=== PATIENT | female | born 1980 | race Caucasian/White ===

== ENCOUNTER 2022-01-11 12:19 | Outpatient (REF) | payer MEDICAID, SELFPAY ==
[2022-01-11 13:00] LABS: COVID-19 Test Negative (Negative)
== END 2022-01-11 12:20 | disposition home or self-care (01) ==
LOC: HO.LAB 12:19
PROVIDERS: Visit Provider Internal Medicine
DX: Z20.822 Contact with and (suspected) exposure to COVID-19 (principal)
CPT/HCPCS: 87635; C9803

== ENCOUNTER 2022-01-14 04:07 | Emergency (ER) | payer MEDICAID, SELFPAY ==
[2022-01-14 04:22] VITALS: BP 141/89; PULSE 94; RESP 18; TEMP 36.8; O2SAT 98; BMI 39.6
== END 2022-01-14 07:29 | disposition left against medical advice (07) ==
PROVIDERS: Emergency Provider Emergency Medicine
DX: R06.02 Shortness of breath (principal)
CPT/HCPCS: 99281

== ENCOUNTER 2022-05-03 13:54 | Emergency (ER) | payer MEDICAID, SELFPAY ==
[2022-05-03 14:08] VITALS: BP 120/72; PULSE 110; RESP 18; TEMP 36.4; O2SAT 99; BMI 39.9
[2022-05-03 14:31] LABS: Amphetamine Screen Urine Not Detected (Not Detect); Barbiturates, Urine Not Detected (Not Detect); Benzodiazepines Screen Urine Not Detected (Not Detect); Cannabinoid Screen Urine POSITIVE (Not Detect); Cocaine Screen Urine Not Detected (Not Detect); Fentanyl, urine Not Detected (Not Detect); Opiate Screen Urine Not Detected (Not Detect); Phencyclidine Screen Urine Not Detected (Not Detect)
--- NOTE | 2022-05-03 16:49 | ED.GENADULT ---
HPI - General Adult General Chief complaint: General Medical Stated complaint: drug screening Time Seen by Provider: 05/03/22 16:47 Source: patient Mode of arrival: ambulatory Limitations: no limitations History of Present Illness HPI narrative: 41 years old female came in requesting screening drop test to be done for DCF for purpose. Patient been also complaining of yeast infection that patient get frequently asking for 1 time treatment. Complaining of dysuria, frequency urination. Related Data Previous Rx's Medication Instructions Recorded nitrofurantoin 100 mg PO Q12H 7 days #14 caps 05/03/22 monohydrate/macrocrystals 100 mg capsule (Macrobid) Allergies Allergy/AdvReac Type Severity Reaction Status Date / Time hydrocodone [From Vicodin] AdvReac Mild VOMITING Unverified 05/03/22 14:02 Penicillins AdvReac Mild VOMITING Verified 05/03/22 14:02 Review of Systems Review of Systems: All other systems are reviewed and are negative Constitutional: Reports as per HPI and Reports no additional constitutional complaints Eyes: Reports as per HPI and Reports no additional eye complaints Reports system reviewed and no additional complaints, except as documented Cardiovascular: Reports as per HPI and Reports no additional cardiovascular complaints Respiratory: Reports as per HPI and Reports no additional respiratory complaints Gastrointestinal: Reports as per HPI and Reports no additional gastrointestinal complaints Genitourinary: Reports no additional female genitourinary complaints Musculoskeletal: Reports no additional musculoskeletal complaints Skin/Breast: Reports system reviewed and no additional complaints, except as docu Psychiatric: Reports no additional psychiatric complaints Endocrine: Reports no additional endocrine complaints Hematologic/Lymphatic: Reports no additional hematologic/lymphatic complaints Allergic/Immunologic: Reports no additional allergic/immunologic complaints Reports system reviewed and no additional complaints, except as documented and Reports Abnormal speech present [facility] Social History Social History Advance Directives: No Advance Directives Information Provided: No Physical Exam ED Vital Signs: Vital Signs - 24 hr 05/03/22 14:08 Temperature 97.6 F Pulse Rate 110 H Respiratory Rate 18 Blood Pressure 120/72 Pulse Oximetry 99 Oxygen Delivery Method Room Air BMI result Body Mass Index 39.9 Vital signs have been reviewed as appeared to be correct. Blood pressure normal. Heart rate elevated. Respiration rate normal. Temperature normal. Oxygen saturation normal. Appearance: Alert. Oriented X3. No acute distress. Head: Normal external exam. Normocephalic. Atraumatic. Eyes: PERRLA. EOMI. Conjunctiva and sclera normal. Eyelids normal. Neck: Normal inspection. Respiratory: No respiratory distress. Skin: Skin warm and dry. Normal skin color. Normal skin turgor. No rashes/lesions/lacerations noted. Course Course Course Narrative: 41-year-old female here for drug screening test required by [facility]. Patient also been having a yeast urinary infection will give 1 dose of Diflucan. Symptoms for UTI. Medical Decision Making Lab Data Labs: Lab Results 05/03/22 05/03/22 05/03/22 Range/Units 14:11 14:11 14:11 Urine Color YELLOW Urine Appearance CLEAR Urine pH 6.0 (5.0-8.0) Ur Specific [place] 1.020 (1.005-1.025) Urine Protein NEG (NEG-TRACE) MG/DL Urine Glucose (UA) NEG (NEG) MG/DL Urine Ketones NEG (NEG) MG/DL Urine Blood 3+ H (NEG) Urine Nitrite NEG (NEG) Ur Leukocyte Esterase 2+ H (NEG) Urine RBC 10-14 H (0) /HPF Urine WBC 10-14 H (0-4) /HPF Ur Squamous Epith Cells 2+ /LPF Urine Bacteria NONE /LPF Urine Opiates Screen Not Detected (Not Detect) Urine Fentanyl Screen Not Detected (Not Detect) Ur Barbiturates Screen Not Detected (Not Detect) Ur Phencyclidine Scrn Not Detected (Not Detect) Ur Amphetamines Screen Not Detected (Not Detect) U Benzodiazepines Scrn Not Detected (Not Detect) Urine Cocaine Screen Not Detected (Not Detect) U Marijuana (THC) Screen POSITIVE H (Not Detect) Chlam trachomat DNA PCR NOT DETECTED (Not Detect.) N.gonorrhoeae DNA (PCR) NOT DETECTED (Not Detect.) Discharge Plan Discharge Clinical Impression: Encounter for medical screening examination, Encounter for drug screening, UTI (urinary tract infection) Patient Disposition: Home, Self-Care Instructions: Urinary Tract Infection in Women (ED), Yeast Infection (ED) Prescriptions: New nitrofurantoin monohyd/m-cryst [Macrobid] 100 mg capsule 100 mg PO Q12H 7 Days Qty: 14 0RF Rx Instructions: must administer with a meal/food Referrals: Physician,Unknown J [Physician] -
[2022-05-03 17:13] LABS: Appearance Urine CLEAR; Color Urine YELLOW; Glucose Urine UA NEG (NEG); Leukocyte Esterase Urine 2+ (NEG); Nitrite Urine NEG (NEG); Urine Blood 3+ (NEG); Urine Ketones NEG (NEG); Urine Protein NEG (NEG-TRACE)
[2022-05-03 17:17] LABS: CT PCR NOT DETECTED (Not Detect.); NG PCR NOT DETECTED (Not Detect.)
[2022-05-03] MEDS: Fluconazole 150 MG TABLET PO (17:22)
[2022-05-03 17:43] LABS: Squamous Epithelial Cell Urine 2+ /LPF
== END 2022-05-03 18:17 | disposition home or self-care (01) ==
PROVIDERS: Emergency Provider Emergency Medicine
DX: N39.0 Urinary tract infection, site not specified (principal); R30.0 Dysuria; R35.0 Frequency of micturition; Z02.9 Encounter for administrative examinations, unspecified; Z79.899 Other long term (current) drug therapy
CPT/HCPCS: 80307; 81001; 87491; 87591; 99283

== ENCOUNTER 2023-08-09 17:25 | Outpatient (REF) | payer MEDICAID, SELFPAY ==
[2023-08-10 15:34] LABS: BV Int Neg Control Negative (Negative); BV Int Pos Control Positive (Positive)
[2023-08-11 14:26] LABS: CT PCR NOT DETECTED (Not Detect.); NG PCR NOT DETECTED (Not Detect.)
== END 2023-08-09 17:26 | disposition home or self-care (01) ==
LOC: HO.LNP 17:25
PROVIDERS: Visit Provider Internal Medicine
DX: Z11.3 Encounter for screening for infections with a predominantly sexual mode of transmission (principal); R30.0 Dysuria
CPT/HCPCS: 0353U; 87086; 87088; 87186; 87480; 87510; 87660

== ENCOUNTER 2024-05-04 17:50 | Outpatient (REF) | payer MEDICAID, SELFPAY ==
[2024-05-04 17:56] LABS: Appearance Urine Clear; Color Urine Yellow; Glucose Urine UA Negative (Negative); Leukocyte Esterase Urine Negative (Negative); Nitrite Urine Negative (Negative); Urine Blood Negative (Negative); Urine Ketones Negative (Negative); Urine Protein Negative (Neg-Trace)
[2024-05-04 18:09] LABS: Bacteria Urine None Seen (None Seen); Hyaline Casts Urine 0-2 /LPF (0-2); RBC Urine 0-2 /HPF (0-2); Squamous Epithelial Cell Urine 0-2 /HPF (0-2); WBC Urine 0-5 /HPF (0-5)
[2024-05-04 20:06] LABS: CT PCR NOT DETECTED (Not Detect.); NG PCR NOT DETECTED (Not Detect.)
== END 2024-05-04 17:51 | disposition home or self-care (01) ==
LOC: HO.HHCLNP 17:50
PROVIDERS: Visit Provider Nurse Practitioner Primary Care
DX: R39.15 Urgency of urination (principal); Z11.3 Encounter for screening for infections with a predominantly sexual mode of transmission
CPT/HCPCS: 81001; 87491; 87591

== ENCOUNTER 2024-07-31 14:55 | Outpatient (REF) | payer MEDICAID, SELFPAY ==
--- NOTE | ~2024-07-31 | MM_ITS ---
EXAMINATION: MM SCREENING DIGITAL BREAST TOMOSYNTHESIS, BILATERAL CLINICAL INFORMATION: Screening. Asymptomatic. COMPARISON: Mammography: Comparison is made with available priors TECHNIQUE: Digital breast mammography with tomosynthesis is performed in both the craniocaudal and mediolateral oblique views along with computer-aided detection (CAD). FINDINGS: The breasts are heterogeneously dense, which may obscure small masses (ACR BI-RADS breast composition Category c). Left: Circumscribed oval masses lateral breast middle and anterior depth on CC view. No suspicious calcifications or other abnormal findings. Right: Focal asymmetry upper central breast middle depth. No suspicious calcifications or other abnormal findings. MM/MM tomosynthesis screening BI IMPRESSION: Additional imaging is recommended ASSESSMENT: BI-RADS BI-RADS 0 - Incomplete: Needs additional Imaging. RECOMMENDATION: 1. Additional views of the bilateral breasts. 2. Targeted ultrasound if warranted after review of the additional views. 3. Radiology department staff will contact the patient for additional imaging. Additional Imaging required This examination should not preclude the clinical evaluation of a suspicious palpable abnormality. This patient's information was entered into a reminder system with a target due date for their next mammogram. Electronically signed by: Dee Mares DO 08/12/2024 01:52 PM EDT
== END 2024-07-31 14:56 | disposition home or self-care (01) ==
LOC: HO.MAMMO 14:55
PROVIDERS: PCP Nurse Practitioner Primary Care; Visit Provider Nurse Practitioner Primary Care
DX: Z12.31 Encounter for screening mammogram for malignant neoplasm of breast (principal)
CPT/HCPCS: 77063; 77067

== ENCOUNTER → 2024-07-31 15:00 | Outpatient (BNV) | payer MEDICAID, SELFPAY | PROVIDERS: PCP Nurse Practitioner Primary Care; Visit Provider Internal Medicine | DX: Z12.31 Encounter for screening mammogram for malignant neoplasm of breast (principal) | CPT/HCPCS: 77063; 77067 ==

== ENCOUNTER 2024-12-11 08:14 | Outpatient (REF) | payer MEDICAID, SELFPAY ==
--- NOTE | ~2024-12-11 | US_ITS ---
EXAMINATION: MM DIAGNOSTIC DIGITAL BREAST TOMOSYNTHESIS, BILATERAL Bilateral Limited ultrasound. CLINICAL INFORMATION: Call back from screening for bilateral asymmetries. COMPARISON: Mammography: Comparison is made with relevant prior exams. TECHNIQUE: Digital breast mammography with tomosynthesis is performed in both the craniocaudal and mediolateral oblique views along with computer-aided detection (CAD). Bilateral Limited ultrasound. FINDINGS: The breasts are heterogeneously dense, which may obscure small masses (ACR BI-RADS breast composition Category c). Right: Circumscribed oval mass measuring 18 mm persist in the upper central breast middle depth. No suspicious calcifications or other abnormal findings. Targeted color Doppler ultrasound demonstrates a hypoechoic oval parallel circumscribed solid mass at 11:00 6 cm from the nipple measuring 9 x 11 x 16 mm. Left: There are a few subcentimeter oval masses in the lateral left breast at middle and posterior depth on CC view. No suspicious calcifications or other abnormal findings. Targeted color Doppler ultrasound scanning in the lower outer left breast demonstrates simple cyst at 4:00 7 cm from the nipple measuring 5 x 5 x 6 mm. There is an adjacent smaller simple cyst. This finding accounts for one of the oval masses seen on mammography. Results are provided to the patient at time of visit by the technologist. US/US breast BI limited mamm only IMPRESSION: Left: Simple cyst on ultrasound correlates with one of the oval masses. Recommend 6 month follow-up left breast mammography for further evaluation of stability. Right: Hypoechoic solid parallel mass in the right breast at 11:00 with morphology consistent with a fibroadenoma. Recommend 6 month follow-up ultrasound for further evaluation of stability. ASSESSMENT: BI-RADS BI-RADS 3 - Probably benign finding(s) - 6 month follow-up suggested RECOMMENDATION: 6 Month F/U This patient's information was entered into a reminder system with a target due date for their next mammogram. Electronically signed by: Dee Mares DO 12/11/2024 09:41 AM [email or web address]
--- OUTSIDE RECORDS SUMMARY | 2024-12-11 08:22 | XMS_ITS | Encounter Summary ---
Author Organization [employer] Address [address] [place] [address] Care Team Providers Care Assistant Passenger Locomotive Engineer Name Role Phone Lola Martin Primary Care Provider [phone] Reason for Visit * Reason Onset Date Comments Appointment Request 06/08/2024 Encounter Details Date Type Department Care Team ([facility] st Contact Info) Description 06/08/2024 Telephone [facility] MEDICINE [address] [place], [place] [phone] Lola Martin ANP [address] [place], [place] [phone] Appointment Request Social History Tobacco Use Types Packs/Day Years Used Date Smoking Tobacco: Every Day Cigarettes 0.5 29 Passive Smoke Exposure: Current Smokeless Tobacco: Never Alcohol Use Standard Drinks/Week Comments Not Currently 0 (1 standard drink = 0.6 oz pur e alcohol) recovering alcholism Depression Answer Date Recorded Patient Health Questionnaire-9 Score 2 05/04/2024 Patient Health Questionnaire-9 Score 2 05/04/2024 Last PHQ-9: Questionnaire Data Not on file 0 05/04/2024 Housing Stability Answer Date Recorded What is your housing situation today? I have los vidal 04/22/[address] you li ve. Do you have problems with any of the following? None of the above 04/22/2024 Food Insecurity Answer Date Recorded Within the past 12 months, y ou worried that your food would run out before you got money to buy more: Never True 04/22/2024 Within the past 12 months,th e food you bought just didn't last and you didn't have enough money to get more: Never True Transportation Answer Date Recorded In the past 12 months, has l ack of transportation kept you from medical appts, meetings, work or from getting things needed for daily living? No 04/22/2024 Utilities Answer Date Recorded In the past 12 months, has t he electric, gas, oil or water company threatened to shut off services in your home? No 04/22/2024 Depression Answer Date Recorded Patient Health Questionnaire-2 Score 0 05/04/2024 Comments Unknown Sex and Gender Information Value Date Recorded Sex Assigned at Female 08/27/2022 10:16 AM EDT Legal Sex Female 10:16 AM EDT Gender Identity Female 08/27/2022 10:16 AM EDT Sexual Orientation Straight 08/27/2022 10 :16 AM EDT documented as of this encounter Miscellaneous Notes * Telephone Encounter - Bk Melissa - 06/08/2024 2:09 PM EDT Tc from patient calling to reschedule Missed PAP appt on 06/08 documented in this encounter Plan of Treatment Upcoming Encounters Date Type Department Care Team (Late st Contact Info) Description 01/25/2025 1:15 PM EDT Office Visit [facility] MEDICINE [address] [place] [address] Lola Martin ANP [address] [place] [address] documented as of this encounter Visit Diagnoses Not on filedocumented in this encounter Additional Health Concerns Assessment Noted Time PHQ-9 Depression Total Score: 2 05/04/20 24 1:41 PM EDT documented as of this encounter Care Teams Assistant Passenger Locomotive Engineer Relationship Specialty Start Date End Date Lola Martin ANP [address] [place] [id number] PCP - General Family Medicine 06/21/22 documented as of this encounter
--- OUTSIDE RECORDS SUMMARY | 2024-12-11 08:22 | XMS_ITS | Encounter Summary ---
Author Organization [employer] Address [address] [place] [address] Care Team Providers Care Community Manager Name Role Phone Lola Martin Primary Care Provider [phone] Reason for Visit * Reason Onset Date Comments Appointment Request 02/12/2024 Encounter Details Date Type Department Care Team ([facility] st Contact Info) Description 02/12/2024 Telephone [facility] MEDICINE [address] [place], [place] [phone] Lola Martin ANP [address] [place], [place] [phone] Appointment Request Social History Tobacco Use Types Packs/Day Years Used Date Smoking Tobacco: Every Day Cigarettes 0.5 29 Passive Smoke Exposure: Current Smokeless Tobacco: Never Alcohol Use Standard Drinks/Week Comments Not Currently 0 (1 standard drink = 0.6 oz pur e alcohol) recovering alcholism Depression Answer Date Recorded Patient Health Questionnaire-9 Score 0 01/21/2023 Housing Stability Answer Date Recorded What is your housing situation today? I have los vidal 08/12/[address] you li ve. Do you have problems with any of the following? None of the above 08/12/2023 Food Insecurity Answer Date Recorded Within the past 12 months, y ou worried that your food would run out before you got money to buy more: Never True 08/12/2023 Within the past 12 months,th e food you bought just didn't last and you didn't have enough money to get more: Never True Transportation Answer Date Recorded In the past 12 months, has l ack of transportation kept you from medical appts, meetings, work or from getting things needed for daily living? No 08/12/2023 Utilities Answer Date Recorded In the past 12 months, has t he electric, gas, oil or water company threatened to shut off services in your home? No 08/12/2023 Depression Answer Date Recorded Patient Health Questionnaire-2 Score 0 01/21/2023 Comments Unknown Sex and Gender Information Value Date Recorded Sex Assigned at Female 08/27/2022 10:16 AM EDT Legal Sex Female 10:16 AM EDT Gender Identity Female 08/27/2022 10:16 AM EDT Sexual Orientation Straight 08/27/2022 10 :16 AM EDT documented as of this encounter Miscellaneous Notes * Telephone Encounter - Amber Cobian - 02/12/2024 12:10 PM EDT Tc from pt requesting r/s PE appt documented in this encounter Plan of Treatment Upcoming Encounters Date Type Department Care Team (Late st Contact Info) Description 01/25/2025 1:15 PM EDT Office Visit [facility] MEDICINE [address] [place] [address] Lola Martin ANP [address] [place] [phone] documented as of this encounter Visit Diagnoses Not on filedocumented in this encounter Additional Health Concerns Assessment Noted Time PHQ-9 Depression Total Score: 0 01/22/20 23 1:51 PM EDT documented as of this encounter Care Teams Community Manager Relationship Specialty Start Date End Date Lola Martin ANP [address] [place] [address] PCP - General Family Medicine 06/21/22 documented as of this encounter
--- OUTSIDE RECORDS SUMMARY | 2024-12-11 08:22 | XMS_ITS | Clinical Summary ---
Author Organization [employer] Address [address] [place] [address] Care Team Providers Care Human Factors Advisor Lead Name Role Phone Mario Lola WASHBURN Primary Care Provider [phone] Allergies No known active allergies Medications triamcinolone (Kenalog) 0.1 % creamIndication s:Eczema, unspecified type Mix into full tub of cerave or similar, apply twice daily 80 g 2 4 Active Emollient (CeraVe Moisturizing) creamIndication s:Eczema, unspecified type Mix triamcinolone into tub, apply twice daily 453 g 3 4 Active varenicline (Chantix) 0.5 MG tabletIndicatio ns:Smokes cigarettes Take 0.5 mg PO once daily on Days 1 through 3, then 0.5 mg PO twice daily on Days 4 through 7, then start 1mg twice daily prescription; take with full glass of water 11 tablet 4 Active varenicline (Chantix) 1 MG tabletIndicatio ns:Smokes cigarettes Take 1 tablet (1 mg) by mouth 2 times daily. Take with full glass of water. Start after initial 7d rx. 60 tablet 2 4 Active nicotine (Nicoderm CQ) 14 MG/24HR patchIndication s:Smokes cigarettes Place 1 patch on the skin 1 (one) time each day at the same time. 42 patch 4 Active nicotine (Nicoderm CQ) 7 MG/24HR patchIndication s:Smokes cigarettes Place 1 patch on the skin 1 (one) time each day at the same time. Do not start before May 29, 2024. 28 patch 1 4 Active buPROPion XL (Wellbutrin XL) 150 MG 24 hr tablet Take 150 mg by mouth Once per day. Do not crush, chew, or split. Active nicotine polacrilex (Nicorette Starter Kit) 2 MG gumIndications: Smokes cigarettes Chew and place b/w gums 1 piece as needed every 2 hours 110 each 11 4 Active Active Problems Problem Noted Date Diagnosed Date Smokes cigarettes 05/04/2024 Overview (05/04/2024): Smoked since 13yo, motivated to quit Vaginal discharge 08/09/2023 Elevated blood pressure reading 08/09/2023 Assessment & Plan (08/09/2023 3:11 PM EDT): Low Na diet , weight reduction Monitor BP at home F/u with PCP Missing teeth, acquired 05/29/2023 Dental calculus 05/29/2023 Eczema 07/14/2013 Overview (01/21/2023): Has used fluff combining Triamcinolone and CeraVe cream which works well Depressive disorder 02/24/2013 Assessment & Plan (08/09/2023 3:11 PM EDT): Patient ask today refill for wellbutrin History of substance abuse 02/24/2013 Obesity 02/24/2013 Immunizations Name Administration Dates Next Due Pfizer Covid-19 Vaccine 12+ 01/17/2022 Pfizer Covid-19 Vaccine 12+ inocente-sucrose (Pierce Cha ap) 01/21/2023,01/17/2022 Social History Tobacco Use Types Packs/Day Years Used Date Smoking Tobacco: Every Day Cigarettes 0.5 29 Passive Smoke Exposure: Current Smokeless Tobacco: Never Tobacco Cessation:Ready to Q uit: Not Asked; Counseling Given: Not Answered Alcohol Use Standard Drinks/Week Comments Not Currently [...] Recorded Patient Health Questionnaire-2 Score 0 05/04/2024 Internet Access Answer Date Recorded Internet Access Q1 Yes 06/29/2024 Internet Access Q2 Not on file 06/29/2024 Comments Unknown Sex and Gender Information Value Date Recorded Sex Assigned at Female 08/27/2022 10:16 AM EDT Legal Sex Female 10:16 AM EDT Gender Identity Female 08/27/2022 10:16 AM EDT Sexual Orientation Straight 08/27/2022 10 :16 AM EDT Last Filed Vital Signs Vital Sign Reading Time Taken Comments Blood Pressure 121/76 05/04/2024 1:40 PM EDT Pulse 102 05/04/2024 1:40 PM EDT Temperature 36.9 ??C (98.4 ??F) 05/04/2024 1:40 PM ED T Respiratory Rate 20 05/04/2024 1:40 PM EDT Oxygen Saturation 97% 05/04/2024 1:40 PM EDT Inhaled Oxygen Concentration - - Weight 108 kg (238 lb 6.4 oz) 05/04/2024 1:40 PM EDT Height 167.6 cm (5' 6 ) 05/04/2024 1:40 PM EDT Body Mass Index 38.48 05/04/2024 1:40 PM EDT Plan of Treatment Upcoming Encounters Date Type Department Care Team (Late st Contact Info) Description 01/25/2025 1:15 PM EDT Office Visit [facility] MEDICINE [address] [place] [address] Lola Martin ANP [address] [place] [address] Health Maintenance Due Date Last Done Comments Alcohol/Substance Use Screening 1993 Family Planning (PISQ) 1996 DTaP/Tdap/Td Vaccines (1 - Tdap) 2000 Hepatitis A Vaccines (1 of 2 - Risk 2-dose series) 2000 Hepatitis B Vaccines (1 of 3 - 19+ 3-dose series) 2000 Pneumococcal Vaccine: Pediatrics (0 to 5 Years) and At-Risk Patients (6 to 49) Years) (1 of 2 - PCV) 2000 Pap Smear 2002 Cervical Cancer Screening 2011 HPV/Cotest 2011 Dental X-Ray: Bitewings 11/27/2023 11/26/2022 Dental Prophylaxis 11/30/2023 05/29/2023 Dental Oral Exam 01/25/2024 07/26/2023, 11/26/2022 COVID-19 Vaccine (4 - 2023-2 5 season) 2024 01/21/2023, 01/17/2022, 01/17/2022 Influenza Vaccine (#1) 2024 Diagnostic Breast Imaging 08/13/2024 SDOH Screening 04/22/2025 04/22/2024 Depression Screening 05/04/2025 05/04/2024, 05/04/2024 Tobacco Screening 05/04/2025 05/04/2024 Dental X-Ray: Full Mouth 11/27/2025 11/26/2022 Lipid Panel 05/29/2026 05/29/2021 Zoster Vaccines (1 of 2) 2031 RSV Patients and Patients Aged 60 years or older (1 - 1-dose 75+ series) 2056 HIV Screening Completed 05/29/2021 Hepatitis C Screening Completed 05/29/2021 HIB Vaccines Aged Out No longer eligi ble based on patient's age to complete this topic HPV Vaccines Aged Out No longer eligi ble based on patient's age to complete this topic IPV Vaccines Aged Out No longer eligi ble based on patient's age to complete this topic Meningococcal Vaccine Aged Out No caitlyn moise eligible based on patient's age to complete this topic RSV under 20 months Aged Out No longe r eligible based on patient's age to complete this topic Rotavirus Vaccines Aged Out No longer eligible based on patient's age to complete this topic Procedures Procedure Name Priority Date/Time Associated Diagnosis Comments PERIODIC ORAL EVALUATION - ESTABLISHED PATIENT Routine 07/26/2023 2:00 PM EDT Dental caries PROPHYLAXIS - ADULT Routine 05/29/2023 3 :00 PM EDT INTRAORAL - COMPLETE SERIES OF RADIOGRAPHIC IMAGES Routine 11/26/2022 2:00 PM EST ZZZ HISTORICAL HEPATITIS C AB W/REFL TO HCV RNA, QN, PCR Routine 05/29/2021 11:26 AM EDT HIV 1/2 ANTIGEN/ANTIBODY, FOURTH GENERATION W/RFL Routine 05/29/2021 11:26 AM EDT LIPID PANEL, STANDARD Routine 05/29/2021 11:26 AM EDT from Last 3 Months or Most Recently Relevant to Health Maintenance Results * HEPATITIS C AB W/REFL TO HCV RNA, QN, PCR (05/29/2021 11:26 AM EDT) HEPATITIS C ANTIBODY NON-REACT SAAD NON-REACT SAAD [facility] INDEX 0.01 <1.00 [facility] Comment: ?? HCV antibody was non-reactive. There is no laboratory ?? evidence of HCV infection. ?? In most cases, no further action is required. However, if recent HCV exposure is suspected, a test for HCV RNA (test code 49176) is suggested. ?? For additional information please refer to http://education.[employer].BUILD/faq/GCH54o0 (This link is being provided for informational/ educational purposes only.) ?? 05/29/2021 11:2 6 AM EDT Katie Aragon NP HISTORICAL/NON ORDERABLE LABS F inal Result [facility] [place] [address], * HIV 1/2 ANTIGEN/ANTIBODY,FOURTH GENERATION W/RFL (05/29/2021 11:26 AM EDT) [facility] HIV-1/2 ANTIGEN AND ANTIBODIES, 4TH GENERATION W/ REFLEX NON-REACT SAAD NON-REACT SAAD [facility] Comment: HIV-1 antigen and HIV-1/HIV-2 antibodies were not detected. There is no laboratory evidence of HIV infection. ?? PLEASE NOTE: This information has been disclosed to you from records whose confidentiality may be protected by state law. ??If your state requires such protection, then the state law prohibits you from making any further disclosure of the information without the specific written consent of the person to whom it pertains, or as otherwise permitted by law. A general authorization for the release of medical or other information is NOT sufficient for this purpose. ? For additional information please refer to http://[employer]/faq/OYG139 (This link is being provided for informational/ educational purposes only.) ? The performance of this assay has not been clinically validated in patients less than 2 years old. ?? 05/29/2021 11:2 6 AM EDT Katie Aragon NP LAB BLOOD ORDERABLES Final Resu lt [facility] [address] * (ABNORMAL) LIPID PANEL, STANDARD (05/29/2021 11:26 AM EDT) [facility] Chol/HDLC Ratio 3.6 <5.0 (calc) [facility] Cholesterol, Total 178 <200 mg/dL [facility] HDL Cholesterol 49(L) > OR = 50 mg/dL [facility] LDL Cholesterol 104(H) mg/dL (calc) [facility] Comment: Reference range: <100 ?? Desirable range <100 mg/dL for primary prevention; ?? <70 mg/dL for patients with CHD or diabetic patients ?? with > or = 2 CHD risk factors. ?? LDL-C is now calculated using the Nicanor-Colindres ?? calculation, which is a validated novel method providing ?? better accuracy than the Friedewald equation in the ?? estimation of LDL-C. ?? Nicanor SS et al. SARWAT. 2013;310(19): 4947-5609 ?? (http://[employer]/faq/TKW515) Non-HDL Cholesterol 129 <130 mg/dL (calc) [facility] Comment: For patients with diabetes plus 1 major ASCVD risk ?? factor, treating to a non-HDL-C goal of <100 mg/dL ?? (LDL-C of <70 mg/dL) is considered a therapeutic ?? option. Triglycerides 148 <150 mg/dL [facility] 05/29/2021 11:2 6 AM EDT us Katie Aragon NP LAB BLOOD ORDERABLES Final Resu lt [facility] [address] [place] [address], from Last 3 Months or Most Recently Relevant to Health Maintenance Insurance [facility] STANDARD D[facility] STAND ADULT Care Teams Human Factors Advisor Lead Relationship Specialty Start Date End Date Lola Martin ANP [address] [place] [phone] PCP - General Family Medicine 06/21/22
== END 2024-12-11 08:15 | disposition home or self-care (01) ==
LOC: HO.MAMMO 08:14
PROVIDERS: PCP Nurse Practitioner Primary Care; Visit Provider Nurse Practitioner Primary Care
DX: R92.331 Mammographic heterogeneous density, right breast (principal); N64.89 Other specified disorders of breast; N63.11 Unspecified lump in the right breast, upper outer quadrant; N60.21 Fibroadenosis of right breast; N60.02 Solitary cyst of left breast
CPT/HCPCS: 76642; 77062; 77066

== ENCOUNTER → 2024-12-11 08:30 | Outpatient (BNV) | payer MEDICAID, SELFPAY | PROVIDERS: PCP Nurse Practitioner Primary Care; Visit Provider Internal Medicine | DX: N63.11 Unspecified lump in the right breast, upper outer quadrant (principal); N60.02 Solitary cyst of left breast | CPT/HCPCS: 76642; 77062; 77066 ==

== ENCOUNTER 2025-02-23 16:27 | Outpatient (REF) | payer MEDICAID, SELFPAY ==
--- OUTSIDE RECORDS SUMMARY | 2025-02-23 18:34 | XMS_ITS | Clinical Summary ---
Author Organization [facility] Address [address] [place] [address] Care Team Providers Care Soils Technician Name Role Phone Vanda Plaza WU Primary Care Provider [phone] Allergies No known active allergies Medications triamcinolone (Kenalog) 0.1 % creamIndicatio ns:Eczema, unspecified type Mix into full tub of cerave or similar, apply twice daily 80 g 2 Active Emollient (CeraVe Moisturizing) creamIndicatio ns:Eczema, unspecified type Mix triamcinolone into tub, apply twice daily 453 g 3 Active nicotine (Nicoderm CQ) 14 MG/24HR patchIndicatio ns:Smokes cigarettes Place 1 patch on the skin 1 (one) time each day at the same time. 42 patch 024 Active nicotine (Nicoderm CQ) 7 MG/24HR patchIndicatio ns:Smokes cigarettes Place 1 patch on the skin 1 (one) time each day at the same time. Do not start before May 29, 2024. 28 patch 1 Active buPROPion XL (Wellbutrin XL) 150 MG 24 hr tablet Take 150 mg by mouth Once per day. Do not crush, chew, or split. Active nicotine polacrilex (Nicorette Starter Kit) 2 MG gumIndications :Smokes cigarettes Chew and place b/w gums 1 piece as needed every 2 hours 110 each 11 Active varenicline (Chantix) 0.5 MG tabletIndicati ons:Smokes cigarettes Take 0.5 mg PO once daily on Days 1 through 3, then 0.5 mg PO twice daily on Days 4 through 7, then start 1mg twice daily prescription; take with full glass of water 11 tablet 025 Active varenicline (Chantix) 1 MG tabletIndicati ons:Smokes cigarettes Take 1 tablet (1 mg) by mouth 2 times daily. Take with full glass of water. Start after initial 7d rx. 60 tablet 2 025 Active Tirzepatide-We ight Management (Zepbound) 2.5 MG/0.5ML solution auto-injectorI ndications:Cla ss 3 severe obesity with body mass index (BMI) of 40.0 to 44.9 in adult, unspecified obesity type, unspecified whether serious comorbidity present Inject 0.5 mL (2.5 mg) under the skin 1 (one) time per week. 2 mL 025 Active varenicline (Chantix) 0.5 MG tabletIndicati ons:Smokes cigarettes Take 0.5 mg PO once daily on Days 1 through 3, then 0.5 mg PO twice daily on Days 4 through 7, then start 1mg twice daily prescription; take with full glass of water 11 tablet 024 2024 Discontinued(R eorder (will not trigger notification to Pharmacy)) varenicline (Chantix) 1 MG tabletIndicati ons:Smokes cigarettes Take 1 tablet (1 mg) by mouth 2 times daily. Take with full glass of water. Start after initial 7d rx. 60 tablet 2 024 2024 Discontinued(R eorder (will not trigger notification to Pharmacy)) Active Problems Problem Noted Date Diagnosed Date Generalized abdominal pain 02/17/2025 Assessment & Plan (02/18/2025 5:25 PM EDT): Pt with constant abdominal pain and inability to eat or drink Reports inability to tolerate antinausea meds Er visit in chart but unable to view work up Reviewed option of labs and imaging out patient Pt reports cannot wait, expect called [facility] for further work up Smokes cigarettes 05/04/2024 Overview (05/04/2024): Smoked since 13yo, motivated to quit Elevated blood pressure reading 08/09/2023 Assessment & [...] History of substance abuse 02/24/2013 Obesity 02/24/2013 Resolved Problems Problem Noted Date Diagnosed Date Resolved Date Vaginal discharge 08/09/2023 01/25/2025 Encounters Date Type Department Care Team Description 02/23/2025 2:15 PM EDT Procedure Visit [address] [address] Maggie Rawls CNM Cervical cancer screening (Primary Dx); Screening examination for venereal disease; Menorrhagia with regular cycle 02/23/2025 Travel 02/17/2025 9:30 AM EDT Office Visit [address] [address] Emely Zazueta NP Generalized abdominal pain (Primary Dx) 02/17/2025 Travel 02/02/[address] [address] Vanda Plaza ANP March01/28/[address] [address] Vanda Plaza ANP Prior Auth Prescription (Zepbound) 01/25/2025 1:15 PM EDT Office Visit [address] [address] Vanda Plaza ANP Class 3 severe obesity with body mass index (BMI) of 40.0 to 44.9 in adult, unspecified obesity type, unspecified whether serious comorbidity present (CMS/HCC) (Primary Dx); Smokes cigarettes; Menorrhagia with regular cycle; Elevated blood pressure reading without diagnosis of hypertension 01/25/2025 Travel 01/08/2025 Population Health Risk Score [facility] [address] [address] Provider, Population Health Generic 12/11/2024 Orders Only [facility] [address] [place] [address] Vanda Plaza ANP from Last 3 Months Immunizations Name Administration Dates Next Due Pfizer Covid-19 Vaccine 12+ 01/17/2022 Pfizer Covid-19 Vaccine 12+ inocente-sucrose (Pelayo Semaj ap) 01/21/2023,01/17/2022 Pneumococcal Conjugate PCV 20 01/25/2025 Tdap 01/25/2025 Family History Medical History Relation Name Comments Breast cancer Other Maternal great aunt Colon cancer Neg Hx Ovarian cancer Neg Hx Relation Name Status Comments Other Unknown Social History Tobacco Use Types Packs/Day Years [...] is your housing situation today? I have losruel vidal 04/22/[address] you [...] Access Q2 Not on file 06/29/2024 Comments No Sex and Gender Information Value Date Recorded Sex Assigned at Female 08/27/2022 10:16 AM EDT Legal Sex Female 10:16 AM EDT Gender Identity Female 08/27/2022 10:16 AM EDT Sexual Orientation Straight 08/27/2022 10 :16 AM EDT Last Filed Vital Signs Vital Sign Reading Time Taken Comments Blood Pressure 110/90 02/23/2025 2:24 PM EDT Pulse 88 02/23/2025 2:24 PM EDT Temperature 36.8 ??C (98.3 ??F) 02/23/2025 2:24 PM ED T Respiratory Rate 24 02/23/2025 2:24 PM EDT Oxygen Saturation 96% 01/25/2025 1:33 PM EDT Inhaled Oxygen Concentration - - Weight 106 kg (233 lb 3.2 oz) 02/23/2025 2:24 PM EDT Height 165.1 cm (5' 5 ) 02/23/2025 2:24 PM EDT Body Mass Index 38.81 02/23/2025 2:24 PM EDT Plan of Treatment Health Maintenance Due Date Last Done Comments Hepatitis B Vaccines (1 of 3 - 19+ 3-dose series) 2000 Pap Smear 2002 Cervical Cancer Screening 2011 HPV/Cotest 2011 Dental X-Ray: Bitewings 11/27/2023 11/26/2022 Dental Prophylaxis 11/30/2023 05/29/2023 Dental Oral Exam 01/25/2024 07/26/2023, 11/26/2022 COVID-19 Vaccine ( - 2023-2 5 season) 2024 01/21/2023, 01/17/2022, 01/17/2022 Influenza Vaccine (#1) 2024 SDOH Screening 04/22/2025 04/22/2024 Depression Screening 05/04/2025 05/04/2024, 05/04/2024 Diagnostic Breast Imaging 06/10/2025 12/11/2024 Dental X-Ray: Full Mouth 11/27/2025 11/26/2022 Alcohol/Substance Use Screening 01/25/2026 01/25/2025 Family Planning (PISQ) 02/23/2026 02/23/2025 Tobacco Screening 02/23/2026 02/23/2025 Lipid Panel 05/29/2026 05/29/2021 Zoster Vaccines (1 of 2) 2031 DTaP/Tdap/Td Vaccines (2 - T d or Tdap) 01/25/2035 01/25/2025 RSV Patients and Patients Aged 60 years or older (1 - 1-dose 75+ series) 2056 HIV Screening Completed 05/29/2021 Hepatitis C Screening Completed 05/29/2021 Pneumococcal Vaccine: Pediatrics (0 to 5 Years) and At-Risk Patients (6 to 49) Years) Completed 01/25/2025 HIB Vaccines Aged Out No longer eligi ble based on patient's age to complete this topic HPV Vaccines Aged Out No longer eligi ble based on patient's age to complete this topic Hepatitis A Vaccines Aged Out No long er eligible based on patient's age to complete [...] Procedure Name Priority Date/Time Associated Diagnosis Comments POCT URINALYSIS DIPSTICK Routine 02/17/2025 9:47 AM EDT Generalized abdominal pain POCT , URINE Routine 02/17/2025 9:46 AM EDT Generalized abdominal pain BI US BREAST LIMITED BILATERAL Routine 12/11/2024 9:00 AM EST BI MAMMOGRAM DIAGNOSTIC TOMOSYNTHESIS ADDED VIEW BILATERAL Routine 12/11/2024 8:20 AM EST PERIODIC ORAL EVALUATION - ESTABLISHED PATIENT Routine [...] Recently Relevant to Health Maintenance Results * (ABNORMAL) POCT urinalysis dipstick manually resulted (02/17/2025 9:47 AM EDT) Color, UA Colorless Clarity, UA Cloudy Glucose, UA Negative Bilirubin, UA Negative Ketones, UA Negative Spec Grav, UA 1.030 Blood, UA Positive(A) Negative, None Detected pH, UA 6.0 Protein, UA 2+ 125++ Urobilinogen, UA 0.2 Leukocytes, UA Negative Negative, Rare, Trace Nitrite, UA Negative Negative, None Detected Appearance, UA clear QC Media Lot # [id number] Lot# Expiration Date Urine 02/17/2025 9:47 AM EDT Emely Zazueta NP POINT OF CARE TEST ENTER/EDIT OR DERABLES Final Result * POCT , urine manually resulted (02/17/2025 9:46 AM EDT) Preg Test, Ur Negative Negative, Indeterminate, None Detected, Invalid, Specimen unsatisfactory for evaluation, Weakly Positive QC Media Lot # [id number] Lot# Expiration Date Urine 02/17/2025 9:46 AM EDT Emely Zazueta NP POINT OF CARE TEST ENTER/EDIT OR DERABLES Final Result * BI US Breast Limited Bilateral (12/11/2024 9:00 AM EST) Anatomical Region Laterality Modality Breast Bilateral Ultrasound 12/11/2024 9:00 AM EST Narrative 12/11/2024 9:44 AM EST ? [facility] [place] ? [address] ?[place] [address] ? Ultrasound Report ? Signed ? Patient: Haramut,Croghan ?MR#: [id number] ?? [id number] ? : 1980 ?Acct:[id number] ? Age/Sex: 44 / F ?ADM Date: 12/11/24 ? Loc: HO.MAMMO ? Attending Dr: Vanda Plaza NP ? Ordering Physician: VANDA PLAZA NP ?? Date of Service: 12/11/24 ?? Procedure(s): US breast BI limited mamm only ?? Accession Number(s): [id number] ? cc: VANDA PLAZA NP ? EXAMINATION: ?? MM DIAGNOSTIC DIGITAL BREAST TOMOSYNTHESIS, BILATERAL ?? Bilateral Limited ultrasound. ? CLINICAL INFORMATION: ? Call back from screening for bilateral asymmetries. ? COMPARISON: ?? Mammography: Comparison is made with relevant prior exams. ? TECHNIQUE: ?? Digital breast mammography with tomosynthesis is performed in both the ?? craniocaudal and mediolateral oblique views along with computer-aided ?? detection (CAD). ?? Bilateral Limited ultrasound. ? FINDINGS: ?? The breasts are heterogeneously dense, which may obscure small masses ?? (ACR BI-RADS breast composition Category c). ?? Right: ?? Circumscribed oval mass measuring 18 mm persist in the upper central ?? breast middle depth. ?? No suspicious calcifications or other abnormal findings. ? Targeted color Doppler ultrasound demonstrates a hypoechoic oval ?? parallel circumscribed solid mass at 11:00 6 cm from the nipple ?? measuring 9 x 11 x 16 mm. ? Left: ?? There are a few subcentimeter oval masses in the lateral left breast at ?? middle and posterior depth on CC view. ?? No suspicious calcifications or other abnormal findings. ? Targeted color Doppler ultrasound scanning in the lower outer left ?? breast demonstrates simple cyst at 4:00 7 cm from the nipple measuring ?? 5 x 5 x 6 mm. There is an adjacent smaller simple cyst. This finding ?? accounts for one of the oval masses seen on mammography. ? Results are provided to the patient at time of visit by the ?? technologist. ? US/US breast BI limited mamm only ?? IMPRESSION: ?? Left: ?? Simple cyst on ultrasound correlates with one of the oval masses. ?? Recommend 6 month follow-up left breast mammography for further ?? evaluation of stability. ? Right: ?? Hypoechoic solid parallel mass in the right breast at 11:00 with ?? morphology consistent with a fibroadenoma. Recommend 6 month follow-up ?? ultrasound for further evaluation of stability. ? ASSESSMENT: ? BI-RADS BI-RADS 3 - Probably benign finding(s) - 6 month follow-up ?? suggested ? RECOMMENDATION: ?? 6 Month F/U ? This patient's information was entered into a reminder system with a ?? target due date for their next mammogram. ? Electronically signed by: ??Dee Mares DO ??12/11/2024 09:41 AM EST ? Dictated By: ?Dee Mares DO ? Signed By: ?<Electronically signed by Dee Mares, DO in OV> ? 12/11/24 0941 ? DD/ 0900 ? TD/TT: 12/11/24 0936 ? Tone Regulator: ? Procedure Note Bess Delgado - 12/11/2024 [facility] [address] [place] [address] Ultrasound Report Signed Patient: Dyan VuMR#: [id number] : 1980Acct:[id number] Age/Sex: 44 / FADM Date: 12/11/24 Loc: HO.MAMMO Attending Dr: Vanda Plaza NP Ordering Physician: VANDA PLAZA NP Date of Service: 12/11/24 Procedure(s): breast BI limited mamm only Accession Number(s): [id number] cc: VANDA PLAZA NP EXAMINATION: MM DIAGNOSTIC DIGITAL BREAST TOMOSYNTHESIS, BILATERAL Bilateral Limited ultrasound. CLINICAL INFORMATION: Call back from screening for bilateral asymmetries. COMPARISON: Mammography: Comparison is made with relevant prior exams. TECHNIQUE: Digital breast mammography with tomosynthesis is performed in both the craniocaudal and mediolateral oblique views along with computer-aided detection (CAD). Bilateral Limited ultrasound. FINDINGS: The breasts are heterogeneously dense, which may obscure small masses (ACR BI-RADS breast composition Category c). Right: Circumscribed oval mass measuring 18 mm persist in the upper central breast middle depth. No suspicious calcifications or other abnormal findings. Targeted color Doppler ultrasound demonstrates a hypoechoic oval parallel circumscribed solid mass at 11:00 6 cm from the nipple measuring 9 x 11 x 16 mm. Left: There are a few subcentimeter oval masses in the lateral left breast at middle and posterior depth on CC view. No suspicious calcifications or other abnormal findings. Targeted color Doppler ultrasound scanning in the lower outer left breast demonstrates simple cyst at 4:00 7 cm from the nipple measuring 5 x 5 x 6 mm. There is an adjacent smaller simple cyst. This finding accounts for one of the oval masses seen on mammography. Results are provided to the patient at time of visit by the technologist. US/US breast BI limited mamm only IMPRESSION: Left: Simple cyst on ultrasound correlates with one of the oval masses. Recommend 6 month follow-up left breast mammography for further evaluation of stability. Right: Hypoechoic solid parallel mass in the right breast at 11:00 with morphology consistent with a fibroadenoma. Recommend 6 month follow-up ultrasound for further evaluation of stability. ASSESSMENT: BI-RADS BI-RADS 3 - Probably benign finding(s) - 6 month follow-up suggested RECOMMENDATION: 6 Month F/U This patient's information was entered into a reminder system with a target due date for their next mammogram. Electronically signed by: Dee Mares DO 12/11/2024 09:41 AM EST Dictated By: Dee Mares DO Signed By: <Electronically signed by Dee Mares DO in OV> 12/11/2441 DD/ 0900 TD/TT: 12/11/24 0936 Tone Regulator: us Vanda YUAN US PROCEDURES Edited Result - Final * BI Mammogram Diagnostic Tomosynthesis added bilateral (12/11/2024 8:20 AM EST) Anatomical Region Laterality Modality Breast Left Mammography 12/11/2024 8:20 AM EST Narrative 12/11/2024 9:44 AM EST ? [place] [facility] ? [address] ?[place] [address] ? Mammography Report ? Signed ? Patient: Haramut,Croghan ?MR#: [id number] ?? [id number] ? : 1980 ?Acct:[id number] ? Age/Sex: 44 / F ?ADM Date: 12/11/24 ? Loc: HO.MAMMO ? Attending Dr: Vanda Plaza STUNT MAN ? Ordering Physician: VANDA PLAZA NP ?Results: 3.6MProbabl ?? y Benign Finding - Short 6 M F/U Suggested ? Date of Service: 12/11/24 ?Follow Up: 6 Month F/U ? Procedure(s): MM tomosynthesis added view BI ?? Accession Number(s): [id number] ? cc: VANDA PLAZA NP ? EXAMINATION: ?? MM DIAGNOSTIC DIGITAL BREAST TOMOSYNTHESIS, BILATERAL ?? Bilateral Limited ultrasound. ? CLINICAL INFORMATION: ? Call back from screening for bilateral asymmetries. ? COMPARISON: ?? Mammography: Comparison is made with relevant prior exams. ? TECHNIQUE: ?? Digital breast mammography with tomosynthesis is performed in both the ?? craniocaudal and mediolateral oblique views along with computer-aided ?? detection (CAD). ?? Bilateral Limited ultrasound. ? FINDINGS: ?? The breasts are heterogeneously dense, which may obscure small masses ?? (ACR BI-RADS breast composition Category c). ?? Right: ?? Circumscribed oval mass measuring 18 mm persist in the upper central ?? breast middle depth. ?? No suspicious calcifications or other abnormal findings. ? Targeted color Doppler ultrasound demonstrates a hypoechoic oval ?? parallel circumscribed solid mass at 11:00 6 cm from the nipple ?? measuring 9 x 11 x 16 mm. ? Left: ?? There are a few subcentimeter oval masses in the lateral left breast at ?? middle and posterior depth on CC view. ?? No suspicious calcifications or other abnormal findings. ? Targeted color Doppler ultrasound scanning in the lower outer left ?? breast demonstrates simple cyst at 4:00 7 cm from the nipple measuring ?? 5 x 5 x 6 mm. There is an adjacent smaller simple cyst. This finding ?? accounts for one of the oval masses seen on mammography. ? Results are provided to the patient at time of visit by the ?? technologist. ? MM/MM tomosynthesis added view BI ?? IMPRESSION: ?? Left: ?? Simple cyst on ultrasound correlates with one of the oval masses. ?? Recommend 6 month follow-up left breast mammography for further ?? evaluation of stability. ? Right: ?? Hypoechoic solid parallel mass in the right breast at 11:00 with ?? morphology consistent with a fibroadenoma. Recommend 6 month follow-up ?? ultrasound for further evaluation of stability. ? ASSESSMENT: ? BI-RADS BI-RADS 3 - Probably benign finding(s) - 6 month follow-up ?? suggested ? RECOMMENDATION: ?? 6 Month F/U ? This patient's information was entered into a reminder system with a ?? target due date for their next mammogram. ? Electronically signed by: ??Dee Guerlinemerle DO ??12/11/2024 09:41 AM EST ?? RP ? Dictated By: ?Dee Mares DO ? Signed By: ?<Electronically signed by Dee Mares, DO in OV> ? 12/11/24 0941 ? DD/ 0820 ? TD/TT: 12/11/24 0845 ? Tone Regulator: ? Procedure Note Danny, Image - 12/11/2024 [facility] [address] [place], [place] [address] Mammography Report Signed Patient: Dyan VuMR#: [id number] : 1980Acct:[id number] Age/Sex: 44 / FADM Date: 12/11/24 Loc: HO.MAMMO Attending Dr: Vanda Plaza NP Ordering Physician: VANDA PLAZA NPResults: 3.6MProbabl y Benign Finding - Short 6 M F/U Suggested Date of Service: 12/11/24Follow Up: 6 Month F/U Procedure(s): MM tomosynthesis added view BI Accession Number(s): [id number] cc: VANDA PLAZA NP EXAMINATION: MM DIAGNOSTIC DIGITAL BREAST TOMOSYNTHESIS, BILATERAL Bilateral Limited ultrasound. CLINICAL INFORMATION: Call back from screening for bilateral asymmetries. COMPARISON: Mammography: Comparison is made with relevant prior exams. TECHNIQUE: Digital breast mammography with tomosynthesis is performed in both the craniocaudal and mediolateral oblique views along with computer-aided detection (CAD). Bilateral Limited ultrasound. FINDINGS: The breasts are heterogeneously dense, which may obscure small masses (ACR BI-RADS breast composition Category c). Right: Circumscribed oval mass measuring 18 mm persist in the upper central breast middle depth. No suspicious calcifications or other abnormal findings. Targeted color Doppler ultrasound demonstrates a hypoechoic oval parallel circumscribed solid mass at 11:00 6 cm from the nipple measuring 9 x 11 x 16 mm. Left: There are a few subcentimeter oval masses in the lateral left breast at middle and posterior depth on CC view. No suspicious calcifications or other abnormal findings. Targeted color Doppler ultrasound scanning in the lower outer left breast demonstrates simple cyst at 4:00 7 cm from the nipple measuring 5 x 5 x 6 mm. There is an adjacent smaller simple cyst. This finding accounts for one of the oval masses seen on mammography. Results are provided to the patient at time of visit by the technologist. MM/MM tomosynthesis added view BI IMPRESSION: Left: Simple cyst on ultrasound correlates with one of the oval masses. Recommend 6 month follow-up left breast mammography for further evaluation of stability. Right: Hypoechoic solid parallel mass in the right breast at 11:00 with morphology consistent with a fibroadenoma. Recommend 6 month follow-up ultrasound for further evaluation of stability. ASSESSMENT: BI-RADS BI-RADS 3 - Probably benign finding(s) - 6 month follow-up suggested RECOMMENDATION: 6 Month F/U This patient's information was entered into a reminder system with a target due date for their next mammogram. Electronically signed by: Dee Mares DO 12/11/2024 09:41 AM EST Dictated By: Dee Mares DO Signed By: <Electronically signed by Dee Mares DO in OV> 12/11/24 0941 DD/ 0820 TD/TT: 12/11/24 0845 Tone Regulator: Vanda WASHBURN IMDali BI PROCEDURES Edited Result - Final * HEPATITIS C AB W/REFL TO HCV RNA, QN, PCR (05/29/2021 11:26 AM EDT) HEPATITIS C ANTIBODY NON-REACT SAAD NON-REACT SAAD [facility] INDEX 0.01 <1.00 [facility] Comment: ?? HCV antibody was non-reactive. There is no laboratory ?? evidence of HCV infection. ?? In most cases, no further action is required. However, if recent HCV exposure is suspected, a test for HCV RNA (test code 70223) is suggested. ?? For additional information please refer to http://education.BiggiFi/faq/BYL24m0 (This link is being provided for informational/ educational purposes only.) ?? 05/29/2021 11:2 6 AM EDT Katie Aragon NP HISTORICAL/NON ORDERABLE LABS F inal Result [facility] [address] * HIV 1/2 ANTIGEN/ANTIBODY,FOURTH GENERATION W/RFL (05/29/2021 11:26 AM EDT) HIV-1/2 ANTIGEN AND ANTIBODIES, 4TH GENERATION W/ REFLEX NON-REACT SAAD NON-REACT SAAD [facility] Comment: HIV-1 antigen and HIV-1/HIV-2 [...] ? For additional information please refer to http://[employer].BiggiFi/faq/WPV057 (This link is being provided for informational/ educational purposes only.) ? The performance of this assay has not been clinically validated in patients less than 2 years old. ?? 05/29/2021 11:2 6 AM EDT Katie Aragon NP LAB BLOOD ORDERABLES Final Resu lt [facility] [address] * (ABNORMAL) LIPID PANEL, STANDARD (05/29/2021 11:26 AM EDT) Chol/HDLC Ratio 3.6 <5.0 (calc) [facility] [...] ?? LDL-C is now calculated using the [place] ?? calculation, which is a validated novel method providing ?? better accuracy than the Friedewald equation in the ?? estimation of LDL-C. ?? Nicanor MILLER et al. SARWAT. 2013;310(19): 8517-6492 ?? (http://education.LensVector/faq/ZSX778) Non-HDL Cholesterol 129 <130 mg/dL (calc) [facility] Comment: For patients with diabetes plus 1 major ASCVD risk ?? factor, treating to a non-HDL-C goal of <100 mg/dL ?? (LDL-C of <70 mg/dL) is considered a therapeutic ?? option. Triglycerides 148 <150 mg/dL [facility] 05/29/2021 11:2 6 AM EDT us Katie Aragon STUNT MAN LAB BLOOD ORDERABLES Final Resu lt [facility] [address] [place] [address], from Last 3 Months or Most Recently Relevant to Health Maintenance Insurance [facility] STANDARD DENTAL-[facility] MEDICAID STAND ADULT Care Teams Soils Technician Relationship Specialty Start Date End Date Vanda Plaza ANP [address] [place] [id number] PCP - General Family Medicine 06/21/22
--- OUTSIDE RECORDS SUMMARY | 2025-02-23 18:34 | XMS_ITS | Encounter Summary ---
Author Organization [employer] Address [address] [place] [address] Care Team Providers Care Petrophysical Engineer Name Role Phone Lola Martin Primary Care Provider [phone] Encounter Details Date Type Department Care Team (Latest Contact Info) Description 02/23/2025 Travel Social History Tobacco Use Types Packs/Day Years [...] AM EDT documented as of this encounter Plan of Treatment Not on file documented as of this encounter Visit Diagnoses Not on filedocumented in this encounter Additional Health Concerns Assessment Noted Time PHQ-9 Depression Total Score: 2 05/04/20 24 1:41 PM EDT documented as of this encounter Care Teams Petrophysical Engineer Relationship Specialty Start Date End Date Lola Martin ANP [address] [place] [address] PCP - General Family Medicine 06/21/22 documented as of this encounter
--- OUTSIDE RECORDS SUMMARY | 2025-02-23 18:34 | XMS_ITS | Encounter Summary ---
Author Organization [employer] Address [address] [place] [address] Care Team Providers Care Sales Receptionist Name Role Phone Lola Martin Primary Care Provider [phone] Reason for Visit * Reason Onset Date Comments Appointment Request 06/08/2024 Encounter Details Date Type Department Care Team ([facility] st Contact Info) Description 06/08/2024 Telephone [facility] MEDICINE [address] [place], [place] [phone] Lola Martin ANP [address] [place], [place] [phone] Appointment Request Social History Tobacco Use Types [...] documented in this encounter Plan of Treatment Not on file documented as of this encounter Visit Diagnoses Not on filedocumented in this encounter Additional Health Concerns Assessment Noted Time PHQ-9 Depression Total Score: 2 05/04/20 24 1:41 PM EDT documented as of this encounter Care Teams Sales Receptionist Relationship Specialty Start Date End Date Lola Martin ANP [address] [place] [address] PCP - General Family Medicine 06/21/22 documented as of this encounter
--- OUTSIDE RECORDS SUMMARY | 2025-02-23 18:34 | XMS_ITS | Encounter Summary ---
Author Organization [employer] Address [address] 7t [place] [address] Care Team Providers Care Scada Engineer Name Role Phone Lola Martin Primary Care Provider [phone] Reason for Visit * Reason Onset Date Comments Appointment Request 02/12/2024 Encounter Details Date Type Department Care Team ([facility] st Contact Info) Description 02/12/2024 Telephone [facility] MEDICINE [address] [place], [place] [phone] Lola Martin ANP 230 [place], [place] [phone] Appointment Request Social History Tobacco Use Types [...] documented as of this encounter Care Teams Scada Engineer Relationship Specialty Start Date End Date Lola Martin ANP [address] [place] [address] PCP - General Family Medicine 06/21/22 documented as of this encounter
--- OUTSIDE RECORDS SUMMARY | 2025-02-23 18:34 | XMS_ITS | Encounter Summary ---
Author Organization [employer] Address [address] [facility] 7t [place] [address] Care Team Providers Care Guinea Pig Breeder Name Role Phone Lola Martin WU Primary Care Provider [phone] Reason for Referral * Imaging (Urgent) - Authorized Specialty Diagnoses / Procedures Referred By Contac t Referred To Contact Radiology Diagnoses Menorrhagia with regular cycle Procedures Us Pelvis complete Maggie Rawls CNM [address] [place] [address] Phone: tel: fax: [address] Phone: tel: fax: Referral ID Status Reason Start Date Expiration Date V isits Requested Visits Authorized [id number] Authorized 02/23/2025 02/23/2026 1 1 * Imaging (Urgent) - Authorized Specialty Diagnoses / Procedures Referred By Contac t Referred To Contact Radiology Diagnoses Menorrhagia with regular cycle Procedures US Pelvis Transvaginal Maggie Rawls CNM [address] [place] [address] Phone: tel: fax: [address] Phone: tel: fax: Referral ID Status Reason Start Date Expiration Date V isits Requested Visits Authorized [id number] Authorized 02/23/2025 02/23/2026 1 1 Reason for Visit * Reason Comments Gynecologic Exam Encounter Details Date Type Department Care Team (Latest Contact Info) Description 02/23/2025 2:15 PM EDT Procedure Visit [facility] MEDICINE [address] [place] [address] Maggie Rawls CNM [address] [place] [address] Cervical cancer screening (Primary Dx); Screening examination for venereal disease; Menorrhagia with regular cycle Social History Tobacco Use Types Packs/Day Years [...] AM EDT documented as of this encounter Last Filed Vital Signs Vital Sign Reading Time Taken Comments Blood Pressure 110/90 02/23/2025 2:24 PM EDT Pulse 88 02/23/2025 2:24 PM EDT Temperature 36.8 ??C (98.3 ??F) 02/23/2025 2:24 PM ED T Respiratory Rate 24 02/23/2025 2:24 PM EDT Oxygen Saturation - - Inhaled Oxygen Concentration - - Weight 106 kg (233 lb 3.2 oz) 02/23/2025 2:24 PM EDT Height 165.1 cm (5' 5 ) 02/23/2025 2:24 PM EDT Body Mass Index 38.81 02/23/2025 2:24 PM EDT documented in this encounter Progress Notes * Maggie Rawls CNM - 02/23/2025 2:15 PM EDT Subjective Patient ID: Dyan Vu is a 44 y.o. female who presents for pap No pap on file. Hx colposcopy. 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 Happy with method. Treated for trichomonas in 2022. Gonorrhea/Chlamydia negative 04/2024. 1 AMAB partner x 1y, no safety concerns. Would like pap based STI testing today. Notes occasional discharge/odor. Chronic history of heavy monthly menses, but getting progressively worse. Bleeds x 7 days, with large clots. Uses diapers. Cramping usually manageable. Occasional discomfort with sex, able to enjoy sex. No intermenstrual or postcoital bleeding. Occasional stress incontinence, no other urinary symptoms. PCP labs ordered including cbc and TSH. She will get these done tomorrow. Long history of abnormal paps/colpos with Dr. Downing's office. Doesn't think she ever had LEEP/cone.Last pap a few years ago. Will get records. Review of Systems HENT: Negative for nosebleeds. Genitourinary: Positive for menstrual problem and vaginal discharge. Negative for dyspareunia, dysuria, frequency, genital sores, hematuria, pelvic pain, urgency, vaginal bleeding and vaginal pain. No breast pain, no nipple discharge, no breast mass Hematological: Does not bruise/bleed easily. Objective BP (!) 110/90 (BP Location: Left arm, Patient Position: Sitting, BP Cuff Size: Adult) Pulse 88 Temp 98.3 ??F (36.8 ??C) (Temporal) Resp 24 Ht 5' 5 (1.651 m) Wt 233 lb 3.2 oz (106 kg) LMP02/04/2025 (Approximate) BMI 38.81 kg/m?? Physical Exam Constitutional: Appearance: Normal appearance. Chest: Breasts: Right: Normal. No swelling, bleeding, inverted nipple, mass, nipple discharge, skin change or tenderness. Left: Normal. No swelling, bleeding, inverted nipple, mass, nipple discharge, skin change or tenderness. Genitourinary: General: Normal vulva. Labia: Right: No rash, tenderness, lesion or injury. Left: No rash, tenderness, lesion or injury. Vagina: Normal. No signs of injury and foreign body. No vaginal discharge, erythema, tenderness, bleeding or lesions. Cervix: No cervical motion tenderness, discharge, friability, lesion, erythema, cervical bleeding or eversion. Uterus: Normal. Not enlarged and not tender. Adnexa: Right adnexa normal and left adnexa normal. Right: No mass, tenderness or fullness. Left: No mass, tenderness or fullness. Comments: Good tone with Kegels, mild cystocele with Valsalva. Lymphadenopathy: Upper Body: Right upper body: No supraclavicular or axillary adenopathy. Left upper body: No supraclavicular or axillary adenopathy. Neurological: Mental Status: She is alert. Psychiatric: Mood and Affect: Mood normal. Behavior: Behavior normal. Assessment/Plan Diagnoses and all orders for this visit: Cervical cancer screening - Pap Smear Cotest today. Will contact with results and get records from Dr. Downing's office. Cotest 3 years unless otherwise indicated by records. Screening examination for venereal disease - STI testing add on (NG, CT, Trich) Pap based STI testing sent. If bacterial vaginosis/vulvovaginal candidiasis on pap, will treat. Menorrhagia with regular cycle - US Pelvis Transvaginal; Future - Us Pelvis complete; Future Get PCP labs. Pelvic ultrasound ordered. Will contact with results. Will refer to CATERING TRUCK OPERATOR if indicated by imaging. Otherwise, could trial progestin. Kegels taught for stress incontinence. Let me know if not helpful in next 1-2m and I will refer to urogyn. documented in this encounter Plan of Treatment Scheduled Orders Name Type Priority Associated Diagnoses Orde r Schedule Pap Smear Pathology and Cytology Routine Cervical cancer screening Ordered: 02/23/2025 STI testing add on (NG, CT, Trich) Pathology and Cytology Routine Screening examination for venereal disease Ordered: 02/23/2025 US Pelvis Transvaginal Imaging Urgent Menorrhagia with regular cycle Expected: 02/23/2025, Expires: 02/23/2026 Us Pelvis complete Imaging Urgent Menorrhagia with regular cycle Expected: 02/23/2025, Expires: 02/23/2026 documented as of this encounter Visit Diagnoses Diagnosis Cervical cancer screening- Primary Screening for malignant neoplasm of the cervix Screening examination for venereal disease Menorrhagia with regular cycle documented in this encounter Additional Health Concerns Assessment Noted Time PHQ-9 Depression Total Score: 2 05/04/20 24 1:41 PM EDT documented as of this encounter Care Teams Guinea Pig Breeder Relationship Specialty Start Date End Date Lola Martin ANP [address] [place] [address] PCP - General Family Medicine 06/21/22 documented as of this encounter
[2025-02-25 19:18] LABS: Trichomonas (NAAT) DETECTED (NOT DETECTED)
[2025-02-25 20:08] LABS: C. trachomatis RNA TMA NOT DETECTED (NOT DETECTED); N. gonorrhoeae RNA TMA NOT DETECTED (NOT DETECTED)
[2025-02-26 13:37] LABS: HPV Genotype 16 Negative (Negative); HPV Genotype 18 Negative (Negative); HPV High Risk Negative (Negative)
== END 2025-02-23 16:28 | disposition home or self-care (01) ==
LOC: HO.HHCLNP 16:27
PROVIDERS: Visit Provider Advanced Practice Midwife
DX: Z12.4 Encounter for screening for malignant neoplasm of cervix (principal); Z11.3 Encounter for screening for infections with a predominantly sexual mode of transmission
CPT/HCPCS: 87491; 87591; 87626; 87661; 88175

== ENCOUNTER 2025-05-31 16:34 | Outpatient (REF) | payer MEDICAID, SELFPAY ==
--- OUTSIDE RECORDS SUMMARY | 2025-05-31 16:36 | XMS_ITS | Encounter Summary ---
Author Organization [employer] Address [address] [facility] 7t [place] [address] Care Team Providers Care Helicopter Mechanic Name Role Phone Lola Martin Primary Care Provider [phone] Reason for Visit * Reason Onset Date Comments Appointment Request 02/12/2024 Encounter Details Date Type Department Care Team ([facility] st Contact Info) Description 02/12/2024 Telephone [facility] MEDICINE [address] [place], [place] [phone] Lola Martin ANP [address] [place], [place] [phone] Appointment Request Social History Tobacco Use Types [...] Care Team (Late st Contact Info) Description 06/11/2025 1:30 PM EDT Office Visit [facility] MEDICINE [address] [place] [address] Lola Martin ANP [address] [place] [address] documented as of this encounter Visit Diagnoses Not on filedocumented in this encounter Additional Health Concerns Assessment Noted Time PHQ-9 Depression Total Score: 0 01/22/20 23 1:51 PM EDT documented as of this encounter Care Teams Helicopter Mechanic Relationship Specialty Start Date End Date Lola Martin ANP [address] [place] [address] PCP - General Family Medicine 06/21/22 documented as of this encounter
[2025-06-01 10:52] LABS: Bacterial Vaginosis PCR NEGATIVE (Negative); Candida Group PCR NOT DETECTED (Not Detect); Candida glab krusei PCR NOT DETECTED (Not Detect); Trichomonas vaginalis PCR DETECTED (Not Detect)
[2025-06-01 11:22] LABS: CT PCR NOT DETECTED (Not Detect.); NG PCR NOT DETECTED (Not Detect.)
== END 2025-05-31 16:35 | disposition home or self-care (01) ==
LOC: HO.HHCLNP 16:34
PROVIDERS: Visit Provider Nurse Practitioner Primary Care
DX: N89.8 Other specified noninflammatory disorders of vagina (principal); Z11.3 Encounter for screening for infections with a predominantly sexual mode of transmission; Z11.8 Encounter for screening for other infectious and parasitic diseases
CPT/HCPCS: 81515; 87491; 87591

== ENCOUNTER 2025-08-05 14:52 | Outpatient (REF) | payer MEDICAID, SELFPAY ==
[2025-08-05 16:38] LABS: Appearance Urine Clear; Glucose Urine UA Negative (Negative); PH 7.0 (5.0-9.0); Specific Gravity - Urine 1.025 (1.005-1.025)
== END 2025-08-05 14:53 | disposition home or self-care (01) ==
LOC: HO.HHCL 14:52
PROVIDERS: PCP Nurse Practitioner Primary Care; Visit Provider Family Medicine
DX: R31.9 Hematuria, unspecified (principal)
CPT/HCPCS: 81001

== ENCOUNTER 2025-08-31 14:25 | Outpatient (REF) | payer MEDICAID, SELFPAY ==
--- OUTSIDE RECORDS SUMMARY | 2025-08-31 17:27 | XMS_ITS | Encounter Summary ---
Author Organization [employer] Address [address] [facility] 7t [place] [address] Care Team Providers Care Echo Tech Name Role Phone Lola Martin Primary Care Provider [phone] Reason for Visit * Reason Onset Date Comments Appointment Request 02/12/2024 Encounter Details Date Type Department Care Team ([facility] st Contact Info) Description 02/12/2024 Telephone [facility] MEDICINE [address] [place], [place] [phone] Lola Martin ANP [address] [place], [place] [phone] Appointment Request Social History Tobacco Use Types [...] Care Team (Late st Contact Info) Description 09/03/2025 1:00 PM EST Office Visit [facility] MEDICINE [address] [place] [address] Lola Martin ANP [address] [place] [address] 09/16/2025 1:30 PM EST Office Visit [facility] ADULT DENTAL [address] [place] [address] Mott-Moran, Maite, DDS [address] [place] [address] documented as of this encounter Visit Diagnoses Not on filedocumented in this encounter Additional Health Concerns Assessment Noted Time PHQ-9 Depression Total Score: 0 01/22/20 23 1:51 PM EDT documented as of this encounter Care Teams Echo Tech Relationship Specialty Start Date End Date Lola Martin ANP [address] [place] [address] PCP - General Family Medicine 06/21/22 documented as of this encounter
--- OUTSIDE RECORDS SUMMARY | 2025-08-31 17:27 | XMS_ITS | Encounter Summary ---
Author Organization [employer] Address [address] [facility] 7t [place] [address] Care Team Providers Care Snow Shoveler Name Role Phone Lola Martin Primary Care Provider [phone] Reason for Visit * Reason Onset Date Comments Appointment Request 06/08/2024 Encounter Details Date Type Department Care Team ([facility] st Contact Info) Description 06/08/2024 Telephone [facility] MEDICINE [address] [place], [place] [phone] Lola Martin ANP [address] [place], [place] [phone] Appointment Request Social History Tobacco Use Types [...] Description 09/03/2025 1:00 PM EST Office Visit [facility] MEDICINE [address] [place] [address] Lola Martin ANP [address] [place] [address] 09/16/2025 1:30 PM EST Office Visit [facility] ADULT DENTAL [address] [place] [address] Mott-Moran, Maite, DDS [address] [place] [address] documented as of this encounter Visit Diagnoses Not on filedocumented in this encounter Additional Health Concerns Assessment Noted Time PHQ-9 Depression Total Score: 2 05/04/20 24 1:41 PM EDT documented as of this encounter Care Teams Snow Shoveler Relationship Specialty Start Date End Date Lola Martin ANP [address] [place] [address] PCP - General Family Medicine 06/21/22 documented as of this encounter
--- OUTSIDE RECORDS SUMMARY | 2025-08-31 17:28 | XMS_ITS | Encounter Summary ---
Author Organization [employer] Address [address] [facility] 7t [place] [address] Care Team Providers Care Rotary Engraver Name Role Phone Lola Martin Primary Care Provider [phone] Reason for Visit * Reason Comments Pre-visit Planning LVM Encounter Details Date Type Department Care Team ([facility] Contact Info) Description 08/27/2025 Patient Outreach [facility] MEDICINE [address] [place], [place] [phone] Lola Martin ANP [address] [place] [address] Pre-visit Planning (LVM) Social History Tobacco Use Types Packs/Day Years Used Date Smoking Tobacco: Every Day Cigarettes 0.5 29 Passive Smoke Exposure: Current Smokeless Tobacco: Never Alcohol Use Standard Drinks/Week Comments Not Currently 0 (1 standard drink = 0.6 oz pur e alcohol) recovering alcholism Depression Answer Date Recorded Patient Health Questionnaire-9 Score 0 05/31/2025 Patient Health Questionnaire-9 Score 0 05/31/2025 Last PHQ-9: Questionnaire Data Not on file 0 05/31/2025 Housing Stability Answer Date Recorded What is your housing situation today? I have [place] 05/31/[address] you li ve. Do you have problems with any of the following? None of the above 05/31/2025 Food Insecurity Answer Date Recorded Within the past 12 months, y ou worried that your food would run out before you got money to buy more: Never True 05/31/2025 Within the past 12 months,th e food you bought just didn't last and you didn't have enough money to get more: Never True 01/2025 Transportation Answer Date Recorded In the past 12 months, has l ack of transportation kept you from medical appts, meetings, work or from getting things needed for daily living? No 05/31/2025 Utilities Answer Date Recorded In the past 12 months, has t he electric, gas, oil or water company threatened to shut off services in your home? No 05/31/2025 Depression Answer Date Recorded Patient Health Questionnaire-2 Score 0 05/31/2025 Internet Access Answer Date Recorded Internet Access Q1 Yes 05/31/2025 Internet Access Q2 Not on file 05/31/2025 Comments No Sex and Gender Information Value Date Recorded Sex Assigned at Female 08/27/2022 10:16 AM EDT Legal Sex Female 10:16 AM EDT Gender Identity Female 08/27/2022 10:16 AM EDT Sexual Orientation Straight 08/27/2022 10 :16 AM EDT documented as of this encounter Progress Notes * Remedios Daniel - 08/27/2025 3:26 PM EDT CC Remedois Barnard placed outbound call to patient to complete pre-visit planning. No answer at this time. Patient name and were not confirmed. CC left voicemail requesting return call. Direct contactinformation provided. documented in this encounter Plan of Treatment Upcoming Encounters Date Type Department Care Team (Late st Contact Info) Description 09/03/2025 1:00 PM EST Office Visit [facility] MEDICINE [address] [place] [address] Lola Martin ANP [address] [place] [address] 09/16/2025 1:30 PM EST Office Visit [facility] ADULT DENTAL [address] [place] [address] Maite Ross DDS [address] [place] [address] documented as of this encounter Visit Diagnoses Not on filedocumented in this encounter Additional Health Concerns Assessment Noted Time PHQ-9 Depression Total Score: 0 05/31/20 25 2:23 PM EDT documented as of this encounter Care Teams Rotary Engraver Relationship Specialty Start Date End Date Lola Martin ANP [address] [place] [address] PCP - General Family Medicine 06/21/22 documented as of this encounter
--- OUTSIDE RECORDS SUMMARY | 2025-08-31 17:28 | XMS_ITS | Encounter Summary ---
Author Organization [employer] Address [address] 7t [place] [address] Care Team Providers Care Heavy Mobile Equipment Repairer Name Role Phone Lola Martin Primary Care Provider [phone] Encounter Details Date Type Department Care Team ([facility] st Contact Info) Description 08/06/2025 Results Follow-Up [facility] MEDICINE [address] [place], [place] [phone] Conchis Oliver MD [address] [place] [address] Urinalysis, Complete, with Reflex to Culture Social History Tobacco Use Types Packs/Day Years [...] as of this encounter Plan of Treatment Upcoming Encounters Date Type Department Care Team (Late st Contact Info) Description 09/03/2025 1:00 PM EST Office Visit [facility] MEDICINE [address] [place] [address] Lola Martin ANP [address] [place] [address] 09/16/2025 1:30 PM EST Office Visit [facility] ADULT DENTAL [address] [place] [address] Tiera-Maite Moran, DDS [address] [place] [address] documented as of this encounter Visit Diagnoses Not on filedocumented in this encounter Additional Health Concerns Assessment Noted Time PHQ-9 Depression Total Score: 0 05/31/20 2:23 PM EDT documented as of this encounter Care Teams Heavy Mobile Equipment Repairer Relationship Specialty Start Date End Date Lola Martin ANP [address] [place] [address] PCP - General Family Medicine 06/21/22 documented as of this encounter
--- OUTSIDE RECORDS SUMMARY | 2025-08-31 17:28 | XMS_ITS | Clinical Summary ---
Author Organization [employer] Address [address] [facility] [address] [place] [address] Care Team Providers Care Senior Analytical Chemist Name Role Phone Vanda Plaza Primary Care Provider [phone] Allergies No known active allergies Medications triamcinolone (Kenalog) 0.1 % creamIndicatio ns:Eczema, unspecified type Mix into full tub of cerave or similar, apply twice daily 80 g 2 05/04/20 24 Active Emollient (CeraVe Moisturizing) creamIndicatio ns:Eczema, unspecified type Mix triamcinolone into tub, apply twice daily 453 g 3 05/04/20 24 Active nicotine (Nicoderm CQ) 14 MG/24HR patchIndicatio ns:Smokes cigarettes Place 1 patch on the skin 1 (one) time each day at the same time. 42 patch 05/04/20 24 Active nicotine (Nicoderm CQ) 7 MG/24HR patchIndicatio ns:Smokes cigarettes Place 1 patch on the skin 1 (one) time each day at the same time. Do not start before May 29, 2024. 28 patch 1 05/29/20 24 Active buPROPion XL (Wellbutrin XL) 150 MG 24 hr tablet Take 150 mg by mouth Once per day. Do not crush, chew, or split. Active nicotine polacrilex (Nicorette Starter Kit) 2 MG gumIndications :Smokes cigarettes Chew and place b/w gums 1 piece as needed every 2 hours 110 each 11 05/04/20 24 Active varenicline (Chantix) 0.5 MG tabletIndicati ons:Smokes cigarettes Take 0.5 mg PO once daily on Days 1 through 3, then 0.5 mg PO twice daily on Days 4 through 7, then start 1mg twice daily prescription; take with full glass of water 11 tablet 01/26/20 25 Active varenicline (Chantix) 1 MG tabletIndicati ons:Smokes cigarettes Take 1 tablet (1 mg) by mouth 2 times daily. Take with full glass of water. Start after initial 7d rx. 60 tablet 2 01/26/20 25 Active omeprazole (PriLOSEC) [address] capsuleIndicat ions:Epigastri c pain 1 capsule daily before breakfast for acid reflux/epigastri c pain. Do not crush or chew. 90 capsule 1 05/31/20 25 Active Tirzepatide-We ight Management (Zepbound) 2.5 MG/0.5ML solution auto-injector Inject 0.5 mL (2.5 mg) under the skin 1 (one) time per week. 2 mL 11 08/02/20 25 Active ondansetron (Zofran) 4 MG tablet Take 1 tablet by mouth every 8 hours as needed for nausea 20 tablet 08/02/20 25 Active Tirzepatide-We ight Management (Zepbound) 5 MG/0.5ML solution auto-injectorI ndications:Cla ss 3 severe obesity with body mass index (BMI) of 40.0 to 44.9 in adult, unspecified obesity type, unspecified whether serious comorbidity present (HCC) Inject 0.5 mL (5 mg) under the skin 1 (one) time per week. 2 mL 1 05/18/20 25 2024 Discontinued Active Problems Problem Noted Date Diagnosed Date Generalized abdominal pain 02/17/2025 Assessment & Plan (02/18/2025 5:25 PM EDT): Pt with constant abdominal pain and inability to eat or drink Reports inability to tolerate antinausea meds Er visit in chart but unable to view work up Reviewed option of labs and imaging out patient Pt reports cannot wait, expect called to cdh er for further work up Smokes cigarettes 05/04/2024 Overview (05/04/2024): Smoked since 13yo, motivated to quit Assessment & Plan (08/06/2025 4:11 PM EDT): - continue working on smoking cessation with PCP - patient states she quit smoking Elevated blood pressure reading 08/09/2023 Assessment & [...] refill for wellbutrin History of substance abuse ([facility]) 02/24/2013 Obesity 02/24/2013 Assessment & Plan (08/06/2025 4:08 PM EDT): - currently on GLP1RA, tirzepatide (Zepbound) 5 mg weekly - her GI symptoms may be due to GLP1RA side effect - decrease tirzepatide to 2.5 mg weekly and reassess her GI symptoms - encouraged adequate, well-balanced diet and fluid intake Resolved Problems Problem Noted Date Diagnosed Date Resolved Date Vaginal discharge 08/09/2023 01/25/2025 Encounters Date Type Department Care Team Description 08/27/2025 Patient Outreach [address] [address] Vanda Plaza ANP Pre-visit Planning (LVM) 08/09/[address] [address] Vanda Plaza ANP Prior Authorization 08/06/2025 Results Follow-Up [address] [address] Conchis Oliver MD Urinalysis, Complete, with Reflex to Culture 08/02/2025 10:00 AM EDT Office Visit [address] [address] Conchis Oliver MD Hematuria, unspecified type (Primary Dx); Class 2 obesity with body mass index (BMI) of 36.0 to 36.9 in adult, unspecified obesity type, unspecified whether serious comorbidity present; Hypokalemia; Smokes cigarettes 08/02/2025 Travel 06/29/[address] [address] Vanda Plaza ANP August06/04/2025 Patient Outreach [address] [address] Vanda Plaza ANP Pre-visit Planning (SDOH screening completed on 05/31/25 ) 06/01/2025 Results Follow-Up [address] [address] Vanda Plaza ANP Bacterial Vaginosis 05/31/2025 2:15 PM EDT Office Visit [address] [address] Vanda Plaza ANP Vaginal discharge (Primary Dx); Class 2 obesity with body mass index (BMI) of 38.0 to 38.9 in adult, unspecified obesity type, unspecified whether serious comorbidity present; Elevated blood pressure reading; Dietary counseling; Exercise counseling; Epigastric pain 05/31/2025 Orders Only [address] [address] Vanda Plaza ANP 05/31/2025 Travel from Last 3 Months Immunizations Immunization Administration Dates Next Due Pfizer Covid-19 Vaccine 12+ 01/17/2022 Pfizer Covid-19 Vaccine 12+ inocente-sucrose (Pelayo C ap) 01/21/2023,01/17/2022 Pneumococcal Conjugate PCV 20 01/25/2025 [...] Q2 Not on file 05/31/2025 Comments No Intention Date Recorded No desire to become (finding) 1 Sex and Gender Information Value Date Recorded Sex Assigned at Female 08/27/2022 10:16 AM EDT Legal Sex Female 10:16 AM EDT Gender Identity Female 08/27/2022 10:16 AM EDT Sexual Orientation Straight 08/27/2022 10 :16 AM EDT Last Filed Vital Signs Vital Sign Reading Time Taken Comments Blood Pressure 110/65 08/02/2025 10:16 AM EDT Pulse 117 08/02/2025 10:16 AM EDT Temperature 36.1 C (96.9 F) 08/02/2025 10:16 AM EDT Respiratory Rate 20 08/02/2025 10:16 AM EDT Oxygen Saturation 99% 08/02/2025 10:16 AM EDT Inhaled Oxygen Concentration - - Weight 98.4 kg (217 lb) 08/02/2025 10:16 AM EDT Height 165.1 cm (5' 5 ) 08/02/2025 10:16 AM EDT Body Mass Index 36.11 08/02/2025 10:16 AM EDT Plan of Treatment Upcoming Encounters Date Type Department Care Team (Late st Contact Info) Description 09/03/2025 1:00 PM EST Office Visit [facility] [address] [place], [place] [phone] Vanda Plaza, ANP [address] [place] [address] 09/16/2025 1:30 PM EST Office Visit [facility] [address] [place] [address] Mott-Moran, Maite, DDS [address] [place], [place] [phone] Health Maintenance Due Date Last Done Comments Disability Screening 1980 HPV Vaccines (1 - 3-dose series) 1996 Hepatitis B Vaccines (1 of 3 - 19+ 3-dose series) 2000 Dental X-Ray: Bitewings 11/27/2023 11/26/2022 Dental Prophylaxis 11/30/2023 05/29/2023 Dental Oral Exam 01/25/2024 07/26/2023, 11/26/2022 Diagnostic Breast Imaging 06/10/2025 12/11/2024 COVID-19 Vaccine (2024-2 6 season) 2025 01/21/2023, 01/17/2022, 01/17/2022 Influenza Vaccine (#1) 2025 Dental X-Ray: Full Mouth 11/27/2025 11/26/2022 Alcohol/Substance Use Screening 01/25/2026 01/25/2025 Lipid Panel 05/29/2026 05/29/2021 Depression Screening 05/31/2026 05/31/2025, 05/31/2025 SDOH Screening 05/31/2026 05/31/2025 Family Planning (PISQ) 08/02/2026 08/02/2025 Tobacco Screening 08/02/2026 08/02/2025 Cervical Cancer Screening 02/24/2028 HPV/Cotest 02/24/2028 02/23/2025 Pap Smear 02/24/2028 02/23/2025 Zoster Vaccines (1 of 2) 2031 DTaP/Tdap/Td Vaccines (2 - T d or Tdap) 01/25/2035 01/25/2025 RSV Patients and Patients Aged 60 years or older (1 - 1-dose 75+ series) 2056 HIV Screening Completed 05/29/2021 Hepatitis C Screening Completed 05/29/2021 Pneumococcal Vaccine: Pediatrics (0 to 5 Years) and At-Risk Patients (6 to 49) Years Completed 01/25/2025 HIB Vaccines Aged Out No longer eligi ble based on patient's age to complete this topic Hepatitis A Vaccines Aged Out No long er eligible based on patient's age to complete this topic IPV Vaccines Aged Out No longer eligi ble based on patient's age to complete this topic Meningococcal B Vaccine Aged Out No l onger eligible based on patient's age to complete [...] Procedure Name Priority Date/Time Associated Diagnosis Comments URINALYSIS, COMPLETE, WITH REFLEX TO CULTURE Routine 08/05/2025 3:04 PM EDT Hematuria, unspecified type BACTERIAL VAGINOSIS PANEL Routine 05/31/2025 2:40 PM EDT CHLAMYDIA/N. GONORRHOEAE RNA, TMA, UROGENITAL Routine 05/31/2025 2:40 PM EDT Vaginal discharge POCT URINALYSIS DIPSTICK Routine 05/31/2025 2:33 PM EDT Vaginal discharge HPV DNA, LOW/HIGH RISK Routine 02/23/2025 2:25 PM EDT PAP SMEAR Routine 02/23/2025 2:25 PM EDT Cervical cancer screening BI US BREAST LIMITED BILATERAL Routine 12/11/2024 9:00 AM EST PERIODIC ORAL EVALUATION - ESTABLISHED [...] Recently Relevant to Health Maintenance Results * Urinalysis, Complete, with Reflex to Culture (08/05/2025 3:04 PM EDT) Color Urine Yellow [facility] Appearance Urine Clear [facility] PH 7.0 5.0 - 9.0 [facility] Glucose Urine UA Negative Negative mg/dL [facility] Urine Blood Negative Negative [facility] Specific Cushing - Urine 1.025 1.005 - 1.025 [facility] Urine Protein Negative Neg-Trace mg/dL [facility] Urine Ketones Trace Negative mg/dL [facility] Nitrite Urine Negative Negative [facility] Leukocyte Esterase Urine Negative Negative [facility] RBC Urine 0-2 0 - 2 /HPF [facility] Urine WBC 0-5 0 - 5 /HPF [facility] Urine Squamous Epithelial Cell 3-5 0 - 2 /HPF [facility] Urine Bacteria Trace None Seen [facility] Hyaline Casts, Urine 0-2 0 - 2 /LPF [facility] Urine 08/05/2025 3:04 PM EDT 08/05/2025 4:20 PM EDT Narrative [facility] - 08/05/2025 5:00 PM EDT Urine, Clean Catch Conchis Oliver MD LAB URINE ORDERABLES Final Resul t [facility] [address] [place] [phone] * (ABNORMAL) Bacterial Vaginosis (05/31/2025 2:40 PM EDT) TRICHOMONAS VAGINALIS DETECTION BY PCR DETECTED(A) Not Detect [facility] BACTERIAL VAGINOSIS DETECTION BY PCR NEGATIVE Negative [facility] Comment:The BV organism targ ets of the Xpert Xpress MVP test can becommensal in women; Xpert Xpress MVP positive results forbacterial vaginosis should be considered in conjunction withother clinical and patient information to determine thedisease status. Organisms that are not detected by the XpertXpress MVP test have also been reported to be associatedwith BV and aerobic vaginitis.The Xpert Xpress MVP test performance has not been evaluatedin patients under the age of 14. ALEIDA GROUP DETECTION BY PCR NOT DETECTED Not Detect [facility] Aleida glab krusei PCR NOT DETECTED Not Detect [facility] 05/31/2025 2:40 PM EDT 05/31/2025 4:35 PM EDT Vanda [facility] MICROBIOLOGY - GENERAL ORDER NIKKI Final Result Performing Organization Address City/[facility]/ZIP Co de Phone Number [facility] [address] [place] [phone] * Chlamydia/N. Gonorrhoeae RNA, TMA, Vagina (05/31/2025 2:40 PM EDT) CT PCR NOT DETECTED Not Detect. [facility] Comment:A not detected test result does not exclude the possibilityof infection because test results can be affected byimproper specimen collection, concurrent antibiotic therapy,or the number of organisms in the specimen which may bebelow the sensitivity of the test. As with many diagnostictests, results from the Xpert CT/NG assay should beinterpreted in conjunction with other laboratory andclinical data available to the clinician.Xpert CT/NG performance has not been evaluated in patientsless than 14 years of age. The assay should not be used forthe evaluationof suspected sexual abuse or for other medico-legalindications. Additional testing is recommended in anycircumstance when false positive or false negative resultscould lead to adverse medical, social or psychologicalconsequences. NG PCR NOT DETECTED Not Detect. [facility] Comment:A not detected test result does not exclude the possibilityof infection because test results can be affected byimproper specimen collection, concurrent antibiotic therapy,or the number of organisms in the specimen which may bebelow the sensitivity of the test. As with many diagnostictests, results from the Xpert CT/NG assay should beinterpreted in conjunction with other laboratory andclinical data available to the clinician.Xpert CT/NG performance has not been evaluated in patientsless than 14 years of age. The assay should not be used forthe evaluationof suspected sexual abuse or for other medico-legalindications. Additional testing is recommended in anycircumstance when false positive or false negative resultscould lead to adverse medical, social or psychologicalconsequences. Swab Vaginal structure / Unknown 05/31/2025 2:40 PM EDT 05/31/2025 4:36 PM EDT Vanda [facility] MICROBIOLOGY - GENERAL ORDER NIKKI Final Result [facility] [address] [place] [phone] * (ABNORMAL) POCT Urinalysis (05/31/2025 2:33 PM EDT) Color, UA Dacia Clarity, UA Cloudy Glucose, UA Negative Bilirubin, UA Negative Ketones, UA Negative Spec Grav, UA 1.020 Blood, UA Positive(A) Negative, None Detected pH, UA 6.0 Protein, UA Moderate Urobilinogen, UA 0.2 Leukocytes, UA Trace Negative, Rare, Trace Nitrite, UA Negative Negative, None Detected Appearance, UA cloudy QC Media Lot # [id number] Lot# Expiration Date [id number] Urine 05/31/2025 2:33 PM EDT us Vanda [facility] POINT OF CARE TEST ENTER/EDIT OR DERABLES Final Result * HPV DNA, Low/High Risk (02/23/2025 2:25 PM EDT) HPV High Risk Negative Negative [facility] HPV Genotype 16 Negative Negative [facility] HPV Genotype 18 Negative Negative [facility] Comment:HPV testing performe d at [facility] (CLIA#[id number]), [address] [place] [id number].Testing for HPV was performed using the [employer]system. The presence of HPV in the female genital tract isassociated with a number of diseases, including cervicalcarcinoma. The HPV DNA high risk pool tests for HPV 31, 33,35, 39, 45, 51, 52, 56, 58, 59, 66 and 68. The testing forHPV 16 and 18 genotypes has also been performed. A positiveresult indicates detection of nucleic acid sequences fromone or more subtypes, whereas a negative result indicatessuch sequences were not detected. 02/23/2025 2:25 PM EDT 02/24/2025 5:50 AM EDT Zack Portillo [facility] BLOOD ORDERABLES Carola l Result [facility] [address] [place] [phone] * Pap Smear (02/23/2025 2:25 PM EDT) Swab Cervix uteri structure / Unknown 02/23/2025 2:25 PM EDT 02/24/2025 5:50 AM EDT Narrative [facility] - 02/26/2025 9:57 AM EDT ----- ------- Name: Dyan Vu Age/Sex: 44/F : 1980 Unit#: [id number] Attend Dr: ZACK PORTILLO [facility] Re02/23/25 Status: DEP [facility] ----- ------- SPEC : [id number] RECD: 02/24/25 STATUS: FRANCESCO PHELPS NUM: [id number] JEFF: 02/23/25-[address] [facility] [address]: ZACK PORTILLO [facility] ENTERED: 02/24/25 SP TYPE: Pap Smr OTHR : ORDERED: Pap Smear Interpretation Satisfactory for evaluation. Negative for intraepithelial lesion or malignancy. Coccobacilli consistent with shift in vaginal ricco. HPV High Risk: Negative HPV Genotyping 16: Negative HPV Genotyping 18: Negative Clinical Information LMP:Unknown date Previous PAP test:Unknown date/findings Material Received ThinPrep-Cervical ----- ------- Signed (signature on file) AMY De Leon (ASCP) 02/26/25 0957 ----- ------- END OF REPORT us Zack Portillo [facility] CYTOLOGY ORDERABLES F inal Result [facility] [address] [place] [phone] * BI US Breast Limited Bilateral (12/11/2024 9:00 AM EST) Anatomical Region Laterality Modality Breast Bilateral Ultrasound 12/11/2024 9:00 AM EST Narrative 12/11/2024 9:44 AM EST [facility] [address] [place] [address] Ultrasound Report Signed Patient: Dyan Vu MR#: [id number] : 1980 Acct:[id number] Age/Sex: 44 / F ADM Date: 12/11/24 Loc: HO.MAMMO Attending Dr: Vanda Plaza NP Ordering Physician: VANDA PLAZA NP Date of Service: 12/11/24 Procedure(s): US breast BI limited mamm only Accession Number(s): [id number] cc: VANDA PLAZA NP EXAMINATION: MM DIAGNOSTIC [...] Dee Mares DO in OV> 12/11/2441 DD/ 9 TD/TT: 12/11/24 0936 Head Of Marketing Analytics: Procedure Note Donotuseinterpreter, Image - 12/11/2024 [facility] [address] [place] [address] Ultrasound Report Signed Patient: Dyan VuMR#: [id number] : 1980Acct:[id number] Age/Sex: 44 / FADM Date: 12/11/24 Loc: HO.MAMMO Attending Dr: Vanda Plaza NP Ordering Physician: VANDA PLAZA NP Date of Service: 12/11/24 Procedure(s): US breast BI limited mamm only Accession Number(s): [id number] cc: VANDA PLAZA NP EXAMINATION: MM DIAGNOSTIC [...] Mares DO in OV> 12/11/24 0941 DD/ 0900 TD/TT: 12/11/24 0936 Head Of Marketing Analytics: us Vanda [facility] IMDali US PROCEDURES Edited Result - Final * HEPATITIS C AB W/REFL TO HCV RNA, QN, PCR (05/29/2021 11:26 AM EDT) HEPATITIS C ANTIBODY NON-REACT SAAD NON-REACT SAAD [facility] INDEX 0.01 <1.00 [facility] Comment: HCV antibody was non-reactive. There is no laboratory evidence of HCV infection. In most cases, no further action is required. However, if recent HCV exposure is suspected, a test for HCV RNA (test code 94615) is suggested. For additional information please refer to http://Predikt.Omiro/faq/NDD38e1 (This link is being provided for informational/ educational purposes only.) 05/29/2021 11:2 6 AM EDT us Katie Aragon NP HISTORICAL/NON ORDERABLE LABS F inal Result [facility] [address] * HIV 1/2 ANTIGEN/ANTIBODY,FOURTH GENERATION W/RFL (05/29/2021 11:26 AM EDT) HIV-1/2 ANTIGEN AND ANTIBODIES, 4TH GENERATION W/ REFLEX NON-REACT SAAD NON-REACT SAAD [facility] Comment: HIV-1 antigen and HIV-1/HIV-2 antibodies were not detected. There is no laboratory evidence of HIV infection. PLEASE NOTE: This information has been disclosed to you from records whose confidentiality may be protected by state law. If your state requires such protection, then the state law prohibits you from making any further disclosure of the information without the specific written consent of the person to whom it pertains, or as otherwise permitted by law. A general authorization for the release of medical or other information is NOT sufficient for this purpose. For additional information please refer to http://education.Omiro/faq/UZD694 (This link is being provided for informational/ educational purposes only.) The performance of this assay has not been clinically validated in patients less than 2 years old. 05/29/2021 11:2 6 AM EDT Katie Aragon PARTS ROOM CLERK LAB BLOOD ORDERABLES Final Resu lt Performing Organization Address [facility] de Phone Number [facility] [address] * (ABNORMAL) LIPID PANEL, STANDARD (05/29/2021 11:26 AM EDT) Chol/HDLC Ratio 3.6 <5.0 (calc) [facility] Cholesterol, Total 178 <200 mg/dL [facility] HDL Cholesterol 49(L) > OR = 50 mg/dL [facility] LDL Cholesterol 104(H) mg/dL (calc) [facility] Comment: Reference range: <100 Desirable range <100 mg/dL for primary prevention; <70 mg/dL for patients with CHD or diabetic patients with > or = 2 CHD risk factors. LDL-C is now calculated using the [place] calculation, which is a validated novel method providing better accuracy than the Friedewald equation in the estimation of LDL-C. Nicanor SS et al. SARWAT. 2013;310(19): 1980-0971 (http://education.RedShelf.Amplify [employer]/faq/TZL325) Non-HDL Cholesterol 129 <130 mg/dL (calc) [facility] Comment: For patients with diabetes plus 1 major ASCVD risk factor, treating to a non-HDL-C goal of <100 mg/dL (LDL-C of <70 mg/dL) is considered a therapeutic option. Triglycerides 148 <150 mg/dL [facility] 05/29/2021 11:2 6 AM EDT Katie Aragon NP LAB BLOOD ORDERABLES Final Resu lt Performing Organization Address [facility] Co de Phone Number [facility] [address] from Last 3 Months or Most Recently Relevant to Health Maintenance Insurance [employer] * Guarantor: Dyan Vu Account Type Relation to Patient Date of Phone Billing Address Dental Self [address] [place] [address] [facility] Care Teams Senior Analytical Chemist Relationship Specialty Start Date End Date Vanda Plaza ANP [address] [place] [address] PCP - General Family Medicine 06/21/22
== END 2025-08-31 14:26 | disposition home or self-care (01) ==
LOC: HO.MAMMO 14:25
PROVIDERS: PCP Nurse Practitioner Primary Care; Visit Provider Nurse Practitioner Primary Care
DX: Z13.89 Encounter for screening for other disorder (principal)

== ENCOUNTER 2025-09-03 17:47 | Outpatient (REF) | payer MEDICAID, SELFPAY ==
--- OUTSIDE RECORDS SUMMARY | 2025-09-03 13:00 | XMS_ITS | Encounter Summary ---
Author Organization [employer] Address [address] [place] [address] Care Team Providers Care Associate Merchant Name Role Phone Lola Martin Primary Care Provider [phone] Encounter Details Date Type Department Care Team (Late st Contact Info) Description 09/03/2025 1:00 PM EST Office Visit [facility] [address], [place] [phone] Lola Martin ANP [address], [place] [phone] Microcytic hypochromic anemia (Primary Dx); Hypokalemia; Abnormal mammogram; Trichomonal vaginitis; Class 2 obesity with body mass index (BMI) of 36.0 to 36.9 in adult, unspecified obesity type, unspecified whether serious comorbidity present; Dysmenorrhea; Depressive disorder Social History Tobacco Use Types Packs/Day Years [...] Sign Reading Time Taken Comments Blood Pressure 110/70 09/03/2025 1:09 PM EST Pulse 101 09/03/2025 1:09 PM EST Temperature 36.4 C (97.6 F) 09/03/2025 1:09 PM EST Respiratory Rate 16 09/03/2025 1:09 PM EST Oxygen Saturation 98% 09/03/2025 1:09 PM EST Inhaled Oxygen Concentration - - Weight 99.8 kg (220 lb) 09/03/2025 1:09 PM EST Height 165.1 cm (5' 5 ) 09/03/2025 1:09 PM EST Body Mass Index 36.61 09/03/2025 1:09 PM EST documented in this encounter Functional Status * Over the last 2 weeks, how often have you been bothered by any of the following problems? Question Answer Date of Assessment Author Feeling nervous, anxious, or on edge 1 09/03/2025 1:10 PM EST Andrea Pedroza MA Not being able to stop or co ntrol worrying 1 09/03/2025 1:10 PM EST Andrea Pedroza MA Worrying too much about diff erent things 2 09/03/2025 1:10 PM EST Andrea Pedroza MA Trouble relaxing 2 09/03/2025 1:10 PM EST Andrea Mejia MA Being so restless that it is hard to sit still 1 09/03/2025 1:10 PM EST Andrea Pedroza MA Becoming easily annoyed or irritable 2 09/03/2025 1:10 PM EST Andrea Pedroza MA Feeling afraid as if somethi ng awful might happen 1 09/03/2025 1:10 PM EST Andrea Pedroza MA SHAQUILLE-7 Total Score 10 09/03/2025 1:10 PM EST Andrea Pedroza MA documented as of this encounter Patient Instructions * Patient Instructions* WU Zuniga - 09/03/2025 1:00 PM EST Please call [facility] Centralized Scheduling at [phone] to schedule the tests (mammogram, ultrasounds) we discussed today. Llame a la Programaci??n Centralizada de [facility] al [phone] para programar las pruebas que discutimos hoy. documented in this encounter Progress Notes * WU Zuniga - 09/03/2025 1:00 PM EST SUBJECTIVE: Dyan Vu is a 45 y.o. year old female who presents for follow up. H Acute Concerns: Patient was seen at [facility] emergency room on 07/24/2025 for epigastric pain. Labs showed alow potassium at 2.9 elevated glucose 112, very high WBCs at 19.31, elevated RBCs 5.49, mild anemiaH/H11.5/37.6, elevated platelets 600, low MCV, MCH, MCHC, elevated RDW MCV 68.5 MCH 20.9 MCHC 30.6 EKG demonstrated tachycardia, sinus no ischemic changes. Was seen here for follow-up and zepbound dose was decreased to 2.5mg. 2. H/o abn mammo 12/11/24, was to get repeat imaging at 6 mo but [facility] could not reach her. Tells me today she has mammo scheduled 09/23/25. US/US breast BI limited mamm only IMPRESSION: [...] month follow-up suggested RECOMMENDATION: 6 Month F/U 3. Here today for follow-up/weight check. Tolerating zepbound (tirzepatide) well, denies side effects after dose decrease d/t nausea. BMI Readings from Last 3 Encounters: 09/03/25 36.61 kg/m?? 08/02/25 36.11 kg/m?? 05/31/25 38.27 kg/m?? Wt Readings from Last 3 Encounters: 09/03/25 220 lb (99.8 kg) 08/02/25 217 lb (98.4 kg) 05/31/25 230 lb (104 kg) Has had improvement in secondary outcomes like more daytime energy with weight loss medication use. Understands that weight loss medications must be used as part of a comprehensive lifestyle plan that incorporates daily exercise, adequate protein intake, decreased soda and sugary beverage consumption, decreased caloric intake. 4. Anemia: reports Heavy Menstrual Bleeding and Dysmenorrhea. History of very heavy periods with severe pain, especially during episodes of illness, pain sometimes so bad she cannot eat or she vomitsd/t pain severity. Noted that both times this occurred, was assoc with a really serious period . Most recent period less severe, managed with Excedrin and hot showers, can't take ibuprofen w/o eating a significant meal to decrease GI side effects, hence the excedrin. Period was 2 weeks late prior to this visit, which has not happened in years. Periods described as regular but heavy. Mom has endometriosis, suggested pt may have same. 5. Difficulty taking psych medications due to inability to eat; avoided psych meds during these episodes and has not yet resumed. She reports Mild depression and increased sleep, attributed to winterseason. Denies interference with daily activities due to not taking psych medications but will resume. Smoking cigs. Social History Social History Narrative Not on file Problem List[1] Surgical History[2] Family History[3] Review of Systems Constitutional: Negative for chills and fever. HENT: Negative for sore throat. Respiratory: Negative for cough and shortness of breath. Cardiovascular: Negative for chest pain. Gastrointestinal: Negative for constipation and diarrhea. Endocrine: Negative for polydipsia, polyphagia and polyuria. Genitourinary: Negative for dysuria. OBJECTIVE: Vitals: 09/03/25 1309 BP: 110/70 BP Location: Right arm Patient Position: Sitting BP Cuff Size: Adult Pulse: 101 Resp: 16 Temp: 97.6 ??F (36.4 ??C) TempSrc: Oral SpO2: 98% Weight: 220 lb (99.8 kg) Height: 5' 5 (1.651 m) Physical Exam Vitals reviewed. Constitutional: General: She is not in acute distress. Appearance: Normal appearance. She is not ill-appearing. HENT: Head: Normocephalic and atraumatic. Eyes: General: No scleral icterus. Extraocular Movements: Extraocular movements intact. Pupils: Pupils are equal, round, and reactive to light. Cardiovascular: Rate and Rhythm: Normal rate and regular rhythm. Pulmonary: Effort: Pulmonary effort is normal. No accessory muscle usage or respiratory distress. Skin: General: Skin is warm and dry. Neurological: Mental Status: She is alert and oriented to person, place, and time. Psychiatric: Mood and Affect: Mood normal. Behavior: Behavior normal. ASSESSMENT/PLAN Diagnoses and all orders for this visit: Microcytic hypochromic anemia (Primary) Recheck labs below. Suspect d/t heavy menses. Pending labs will start Fe supplement. Counseled on vit c and Fe together. - CBC auto differential; Future - Iron And Total Iron Binding Capacity; Future - Ferritin; Future Depression Can resume wellbutrin Hypokalemia Recheck. Likely d/t GI sickness. Abnormal mammogram Pt reports has scheduled. Deleted orders from today prior to knowing she was scheduled, last in chart was they had not been able to reach her to do so. - Cancel: BI Mammogram Diagnostic Tomosynthesis Bilateral; Future - Cancel: BI US Breast Limited Left; Future - Cancel: BI US Breast Limited Right; Future Trichomonal vaginitis S/p treatment. Today's is test of cure. - Bacterial Vaginosis Panel Class 2 obesity with body mass index (BMI) of 36.0 to 36.9 in adult, unspecified obesity type, unspecified whether serious comorbidity present Continuing to benefit from zepbound. My consider re-titrating up pending repeat labs. Dysmenorrhea Pelvic US ordered by CNM This note was drafted using Ambient (AI) technology. The patient/patient's guardian has been informed and has consented to the use of this technology: Yes Follow Up: 2 mo wt check Medications Ordered Prior to Encounter[4] Norwegian Translation: Patient is bilingual and declines translation services [1] Patient Active Problem List Diagnosis Depressive disorder Eczema History of substance abuse (CMS/HCC) (HCC) Obesity Missing teeth, acquired Dental calculus Elevated blood pressure reading Smokes cigarettes Generalized abdominal pain Microcytic hypochromic anemia [2] Past Surgical History: Procedure Laterality Date TUBAL LIGATION [3] Family History Problem Relation Name Age of Onset Breast cancer Other 50 - 59 Maternal great aunt Colon cancer Neg Hx Ovarian cancer Neg Hx [4] Current Outpatient Medications on File Prior to Visit Medication Sig Dispense Refill buPROPion XL (Wellbutrin XL) 150 MG 24 hr tablet Take 150 mg by mouth Once per day. Do not crush, chew, or split. Emollient (CeraVe Moisturizing) cream Mix triamcinolone into tub, apply twice daily 453 g 3 nicotine (Nicoderm CQ) 14 MG/24HR patch Place 1 patch on the skin 1 (one) time each day at the sametime. 42 patch 0 nicotine (Nicoderm CQ) 7 MG/24HR patch Place 1 patch on the skin 1 (one) time each day at the same time. Do not start before May 29, 2024. 28 patch 1 nicotine polacrilex (Nicorette Starter Kit) 2 MG gum Chew and place b/w gums 1 piece as needed every 2 hours 110 each 11 omeprazole (PriLOSEC) [address] capsule 1 capsule daily before breakfast for acid reflux/epigastric pain. Do not crush or chew. 90 capsule 1 ondansetron (Zofran) 4 MG tablet Take 1 tablet by mouth every 8 hours as needed for nausea 20 tablet 0 Tirzepatide-Weight Management (Zepbound) 2.5 MG/0.5ML solution auto-injector Inject 0.5 mL (2.5 mg)under the skin 1 (one) time per week. 2 mL 11 triamcinolone (Kenalog) 0.1 % cream Mix into full tub of cerave or similar, apply twice daily 80 g 2 varenicline (Chantix) 0.5 MG tablet Take 0.5 mg PO once daily on Days 1 through 3, then 0.5 mg PO twice daily on Days 4 through 7, then start 1mg twice daily prescription; take with full glass of water 11 tablet 0 varenicline (Chantix) 1 MG tablet Take 1 tablet (1 mg) by mouth 2 times daily. Take with full glassof water. Start after initial 7d rx. 60 tablet 2 No current facility-administered medications on file prior to visit. documented in this encounter Plan of Treatment Upcoming Encounters Date Type Department Care Team (Late st Contact Info) Description 09/16/2025 1:30 PM EST Office Visit [facility] [address] [place] [address] Mott-Moran, Maite, DDS [address] [place] [address] Scheduled Orders Name Type Priority Associated Diagnoses Orde r Schedule Bacterial Vaginosis Panel Microbiology Routine Trichomonal vaginitis Ordered: 09/03/2025 CBC auto differential Lab Routine Microcytic hypochromic anemia Expected: 09/03/2025 (Approximate), Expires: 09/03/2026 Iron And Total Iron Binding Capacity Lab Routine Microcytic hypochromic anemia Expected: 09/03/2025, Expires: 09/03/2026 Ferritin Lab Routine Microcytic hypochromic anemia Expected: 09/03/2025, Expires: 09/03/2026 documented as of this encounter Visit Diagnoses Diagnosis Microcytic hypochromic anemia- Primary Unspecified iron deficiency anemia Hypokalemia Hypopotassemia Abnormal mammogram Abnormal mammogram, unspecified Trichomonal vaginitis Trichomonal vulvovaginitis Class 2 obesity with body mass index (BMI) of 36.0 to 36.9 in adult, unspecified obesity type, unspecified whether serious comorbidity present Dysmenorrhea Depressive disorder Depressive disorder, not elsewhere classified documented in this encounter Additional Health Concerns Assessment Noted Time PHQ-9 Depression Total Score: 0 05/31/20 25 2:23 PM EDT documented as of this encounter Care Teams Associate Merchant Relationship Specialty Start Date End Date Lola Martin ANP [address] [place] [address] PCP - General Family Medicine 06/21/22 documented as of this encounter
--- OUTSIDE RECORDS SUMMARY | 2025-09-03 17:50 | XMS_ITS | Encounter Summary ---
Author Organization [employer] Address [address] [place] [address] Care Team Providers Care Match Marker Name Role Phone Lola Martin Primary Care Provider [phone] Reason for Visit * Reason Onset Date Comments Appointment Request 06/08/2024 Encounter Details Date Type Department Care Team ([facility] st Contact Info) Description 06/08/2024 Telephone [facility] [address] [place], [place] [phone] Lola Martin ANP [address], [place] [phone] Appointment Request Social History Tobacco Use Types [...] Description 09/16/2025 1:30 PM EST Office Visit [facility] [address] [place] [address] Maite Ross DDS [address] [place] [address] documented as of this encounter Visit Diagnoses Not on filedocumented in this encounter Additional Health Concerns Assessment Noted Time PHQ-9 Depression Total Score: 2 05/04/20 24 1:41 PM EDT documented as of this encounter Care Teams Match Marker Relationship Specialty Start Date End Date Lola Martin ANP [address] [place] [phone] PCP - General Family Medicine 06/21/22 documented as of this encounter
--- OUTSIDE RECORDS SUMMARY | 2025-09-03 17:50 | XMS_ITS | Clinical Summary ---
Author Organization [employer] Address [address] [facility] 7t [place] [address] Care Team Providers Care Watch Train Inspector Name Role Phone Vanda Plaza Primary Care Provider [phone] Allergies No known active allergies Medications triamcinolone (Kenalog) 0.1 % creamIndication s:Eczema, unspecified type Mix into full tub of cerave or similar, apply twice daily 80 g 2 4 Active Emollient (CeraVe Moisturizing) creamIndication s:Eczema, unspecified type Mix triamcinolone into tub, apply twice daily 453 g 3 4 Active nicotine (Nicoderm CQ) 14 MG/24HR [...] 2 hours 110 each 11 4 Active varenicline (Chantix) 0.5 MG tabletIndicatio ns:Smokes cigarettes Take 0.5 mg PO once daily on Days 1 through 3, then 0.5 mg PO twice daily on Days 4 through 7, then start 1mg twice daily prescription; take with full glass of water 11 tablet 5 Active varenicline (Chantix) 1 MG tabletIndicatio ns:Smokes cigarettes Take 1 tablet (1 mg) by mouth 2 times daily. Take with full glass of water. Start after initial 7d rx. 60 tablet 2 5 Active omeprazole (PriLOSEC) [address] capsuleIndicati ons:Epigastric pain 1 capsule daily before breakfast for acid reflux/epigastric pain. Do not crush or chew. 90 capsule 1 5 Active Tirzepatide-Reginald ght Management (Zepbound) 2.5 MG/0.5ML solution auto-injector Inject 0.5 mL (2.5 mg) under the skin 1 (one) time per week. 2 mL 11 5 Active ondansetron (Zofran) 4 MG tablet Take 1 tablet by mouth every 8 hours as needed for nausea 20 tablet Active naltrexone (Depade) 50 MG tablet Take 1 tablet by mouth Once per day. 5 Active Active Problems Problem Noted Date Diagnosed Date Microcytic hypochromic anemia 09/03/2025 Generalized abdominal pain 02/17/2025 Assessment & Plan (02/18/2025 5:25 PM EDT): Pt with constant abdominal pain and inability to eat or drink Reports inability to tolerate antinausea meds Er visit in chart but unable to view work up Reviewed option of labs and imaging out patient Pt reports cannot wait, expect called to [facility] er for further work up Smokes cigarettes [...] refill for wellbutrin History of substance abuse ([facility]) 02/24/2013 Obesity 02/24/2013 Assessment & Plan (08/06/2025 [...] Encounters Date Type Department Care Team Description 09/03/2025 1:00 PM EST Office Visit [address] [address] Vanda Plaza ANP Microcytic hypochromic anemia (Primary Dx); Hypokalemia; Abnormal mammogram; Trichomonal vaginitis; Class 2 obesity with body mass index (BMI) of 36.0 to 36.9 in adult, unspecified obesity type, unspecified whether serious comorbidity present; Dysmenorrhea; Depressive disorder 09/03/2025 Travel 09/01/2025 Telephone [facility] MEDICINE [address] [place] [phone] Vanda Plaza ANP chart prep 08/27/2025 Patient Outreach [address] [address] Vanda Plaza ANP Pre-visit Planning (LVM) 08/09/[address] [address] Vanda Plaza ANP Prior Authorization 08/06/2025 Results Follow-Up [address] [address] Conchis Oliver MD Urinalysis, Complete, with Reflex to Culture 08/02/2025 10:00 AM EDT Office Visit [facility] MEDICINE [address] [place] [phone] Conchis Oliver MD Hematuria, unspecified type (Primary Dx); Class 2 obesity with body mass index (BMI) of 36.0 to 36.9 in adult, unspecified obesity type, unspecified whether serious comorbidity present; Hypokalemia; Smokes cigarettes 08/02/2025 Travel 06/29/2025 Telephone [facility] MEDICINE [address] [place] [address] Vanda Plaza ANP August06/04/2025 Patient Outreach [facility] [address] [place] [address] Vanda Plaza ANP Pre-visit Planning ([facility] screening completed on 05/31/25 ) from Last 3 Months Immunizations Immunization Administration [...] Mass Index 36.61 09/03/2025 1:09 PM EST Plan of Treatment Upcoming Encounters Date Type Department Care Team (Late st Contact Info) Description 09/16/2025 1:30 PM EST Office Visit [facility] ADULT DENTAL [address] [place] [address] Maite Ross, SHERLYNS [address] [place] [address] Health Maintenance Due Date Last Done Comments HPV Vaccines (1 - 3-dose series) 1996 Hepatitis B Vaccines (1 of 3 - 19+ 3-dose series) 2000 Dental X-Ray: Bitewings 11/27/2023 11/26/2022 Dental Prophylaxis 11/30/2023 05/29/2023 Dental Oral Exam 01/25/2024 07/26/2023, 11/26/2022 Diagnostic Breast Imaging 06/10/2025 12/11/2024 COVID-19 Vaccine (4 - 2024-2 6 season) 2025 01/21/2023, 01/17/2022, 01/17/2022 Influenza Vaccine (#1) 2025 Dental X-Ray: Full Mouth 11/27/2025 11/26/2022 Alcohol/Substance Use Screening 01/25/2026 01/25/2025 Lipid Panel 05/29/2026 05/29/2021 Depression Screening 05/31/2026 05/31/2025, 05/31/2025 SDOH Screening 05/31/2026 05/31/2025 Family Planning (PISQ) 08/02/2026 08/02/2025 Disability Screening 09/03/2026 09/03/2025 Tobacco Screening 09/03/2026 09/03/2025 Cervical Cancer Screening 02/24/2028 HPV/Cotest 02/24/2028 02/23/2025 [...] 08/05/2025 3:04 PM EDT Hematuria, unspecified type HPV DNA, LOW/HIGH RISK Routine 02/23/2025 2:25 [...] (08/05/2025 3:04 PM EDT) Color Urine Yellow [facility] Appearance Urine Clear [facility] PH 7.0 5.0 - 9.0 [facility] Glucose Urine UA Negative Negative mg/dL [facility] Urine Blood Negative Negative [facility] Specific [place] - Urine 1.025 1.005 - 1.025 [facility] Urine Protein Negative Neg-Trace mg/dL [facility] Urine Ketones Trace Negative mg/dL [facility] Nitrite Urine Negative Negative [facility] Leukocyte Esterase Urine Negative Negative [facility] RBC Urine 0-2 0 - 2 /HPF [facility] Urine WBC 0-5 0 - 5 /HPF [facility] Urine Squamous Epithelial Cell 3-5 0 - 2 /HPF [facility] Urine Bacteria Trace None Seen [facility] Hyaline Casts, Urine 0-2 0 - 2 /LPF [facility] Urine 08/05/2025 3:04 PM EDT 08/05/2025 4:20 PM EDT Narrative [facility] - 08/05/2025 5:00 PM EDT Urine, Clean Catch us Conchis Oliver MD LAB URINE ORDERABLES Final Resul t [facility] [address] [place] [address] [phone] * HPV DNA, Low/High Risk (02/23/2025 2:25 PM EDT) HPV High Risk Negative Negative [facility] HPV Genotype 16 Negative Negative [facility] HPV Genotype 18 Negative Negative [facility] Comment:HPV testing performe d at [facility] (CLIA#[id number]), [address] [place] [address].Testing for HPV was performed using the Antoinette JOLLY 6800system. The presence of HPV in the female [...] 2:25 PM EDT 02/24/2025 5:50 AM EDT us Zack Portillo CNM LAB BLOOD ORDERABLES Carola sr Result [facility] [address] [place] [phone] * Pap Smear (02/23/2025 2:25 PM EDT) Swab Cervix uteri structure / Unknown 02/23/2025 2:25 PM EDT 02/24/2025 5:50 AM EDT Narrative [facility] - 02/26/2025 9:57 AM EDT ----- ------- Name: Dyan Vu Age/Sex: 44/F : 1980 Unit#: [id number] Attend Dr: ZACK PORTILLO CNM Re02/23/25 Status: DEP REF Location: [facility] Disch: ----- ------- SPEC : [id number] RECD: 02/24/258450 STATUS: FRANCESCO PHELPS NUM: [id number] JEFF: 02/23/25-[address] [facility] [address]: ZACK PORTILLO CNM ENTERED: 02/24/25-599 SP TYPE: Pap Smr OT DR: ORDERED: Pap Smear Interpretation Satisfactory for evaluation. Negative for intraepithelial lesion or malignancy. Coccobacilli consistent with shift in vaginal ricco. HPV High Risk: Negative HPV Genotyping 16: Negative HPV Genotyping 18: Negative Clinical Information LMP:Unknown date Previous PAP test:Unknown date/findings Material Received ThinPrep-Cervical ----- ------- Signed (signature on file) AMY De Leon (ASCP) 02/26/25 0957 ----- ------- END OF REPORT Zack Portillo CNM LAB CYTOLOGY ORDERABLES F inal Result [facility] [address] [place] [phone] * BI US Breast Limited Bilateral (12/11/2024 9:00 AM EST) Anatomical Region Laterality Modality Breast Bilateral Ultrasound 12/11/2024 9:00 AM EST Narrative 12/11/2024 9:44 AM EST [facility] [address] [place] [address] Ultrasound Report Signed Patient: Dyan Vu MR#: [id number] : 1980 Acct:[id number] Age/Sex: 44 / F ADM Date: 12/11/24 Loc: HO.MAMMO Attending Dr: Vadna Plaza NP Ordering Physician: VANDA PLAZA NP Date of Service: 12/11/24 Procedure(s): US breast BI limited mamm only Accession Number(s): [id number] cc: VANDA PLAZA NP EXAMINATION: MM DIAGNOSTIC [...] signed by Dee Mares DO in OV> 12/11/24940 DD/ 9 TD/TT: 12/11/24935 Opening Machine Cleaner: Procedure Note Donotuseinterpreter, Image - 12/11/2024 [facility] [address] [place], [place] [address] Ultrasound Report Signed Patient: Dyan VuMR#: [id number] : 1980Acct:[id number] Age/Sex: 44 / FADM Date: 12/11/24 Loc: HO.MAMMO Attending Dr: Vanda Plaza NP Ordering Physician: VANDA PLAZA NP Date of Service: 12/11/24 Procedure(s): US breast BI limited mamm only Accession Number(s): [id number] cc: VANDA PLAZA NP EXAMINATION: MM DIAGNOSTIC [...] signed by Dee Mares DO in OV> 12/11/24940 DD/ TD/TT: 12/11/24 0936 Opening Machine Cleaner: us Vanda WASHBURN IMDali US PROCEDURES Edited Result - Final * HEPATITIS C AB W/REFL TO HCV RNA, QN, PCR (05/29/2021 11:26 AM EDT) HEPATITIS C ANTIBODY NON-REACT SAAD NON-REACT SAAD [facility] INDEX 0.01 <1.00 [facility] Comment: HCV antibody was non-reactive. There is no laboratory evidence of HCV infection. In most cases, no further action is required. However, if recent HCV exposure is suspected, a test for HCV RNA (test code 34157) is suggested. For additional information please refer to http://education.LiveRail.FarmDrop/faq/UOT84b8 (This link is being provided for informational/ educational purposes only.) 05/29/2021 11:2 6 AM EDT us Katie Aragon NP HISTORICAL/NON ORDERABLE LABS F inal Result [facility] [address] [place] [address], * HIV 1/2 ANTIGEN/ANTIBODY,FOURTH GENERATION W/RFL (05/29/2021 11:26 AM EDT) Pathologist [facility] HIV-1/2 ANTIGEN AND ANTIBODIES, 4TH GENERATION W/ REFLEX NON-REACT SAAD NON-REACT SAAD [facility] Comment: HIV-1 antigen and [...] purpose. For additional information please refer to http://MemoryMerge.StarGen/faq/EXD335 (This link is being provided for informational/ educational purposes only.) The performance of this assay has not been clinically validated in patients less than 2 years old. 05/29/2021 11:2 6 AM EDT Katie Aragon NP LAB BLOOD ORDERABLES Final Resu lt [facility] [address] * (ABNORMAL) LIPID PANEL, STANDARD (05/29/2021 11:26 AM EDT) Pathologist [facility] Chol/HDLC Ratio 3.6 <5.0 (calc) [facility] [...] factors. LDL-C is now calculated using the Nicanor-Jens calculation, which is a validated novel method providing better accuracy than the Friedewald equation in the estimation of LDL-C. Nicanor MILLER et al. SARWAT. 2013;310(19): 1187-9771 (http://education.Ameibo/faq/LFA310) Non-HDL Cholesterol 129 <130 mg/dL (calc) [facility] Comment: For patients with diabetes plus 1 major ASCVD risk factor, treating to a non-HDL-C goal of <100 mg/dL (LDL-C of <70 mg/dL) is considered a therapeutic option. Triglycerides 148 <150 mg/dL [facility] 05/29/2021 11:2 6 AM EDT us Katie Aragon SOLDERER DIPPER LAB BLOOD ORDERABLES Final Resu lt [facility] [address] [place] [address], from Last 3 Months or Most Recently Relevant to Health Maintenance Insurance [facility] C3 DENTAL-[facility] MEDICAID STAND ADULT Care Teams Watch Train Inspector Relationship Specialty Start Date End Date Vanda Plaza ANP [address] [place] [phone] PCP - General Family Medicine 06/21/22
--- OUTSIDE RECORDS SUMMARY | 2025-09-03 17:50 | XMS_ITS | Encounter Summary ---
Author Organization [employer] Address [address] [facility] 7t [place] [address] Care Team Providers Care Sausage Inspector Name Role Phone Lola Martin Primary Care Provider [phone] Reason for Visit * Reason Onset Date Comments Appointment Request 02/12/2024 Encounter Details Date Type Department Care Team ([facility] st Contact Info) Description 02/12/2024 Telephone [facility] MEDICINE [address] [place], [place] [phone] Lola Martin ANP [address] [place], [place] [phone] Appointment Request Social History Tobacco Use Types [...] Description 09/16/2025 1:30 PM EST Office Visit [facility] ADULT DENTAL [address] [place] [address] Mott-Moran, Maite, DDS [address] [place] [address] documented as of this encounter Visit Diagnoses Not on filedocumented in this encounter Additional Health Concerns Assessment Noted Time PHQ-9 Depression Total Score: 0 01/22/20 23 1:51 PM EDT documented as of this encounter Care Teams Sausage Inspector Relationship Specialty Start Date End Date Lola Martin ANP [address] [place] [address] PCP - General Family Medicine 06/21/22 documented as of this encounter
--- OUTSIDE RECORDS SUMMARY | 2025-09-03 17:50 | XMS_ITS | Encounter Summary ---
Author Organization [employer] Address [address] [facility] [address] [place] [address] Care Team Providers Care Mine Laborer Name Role Phone Lola Martin Primary Care Provider Encounter Details Date Type Department Care Team (Latest Contact Info) Description 09/03/2025 Travel Social History Tobacco Use Types Packs/Day [...] AM EDT documented as of this encounter Functional Status * Over the last 2 weeks, how often have you been bothered by any of the following problems? Question Answer Date of Assessment Author Feeling nervous, anxious, or on edge 1 09/03/2025 1:10 PM EST Andrea Pedroza MA Not being able to stop or co ntrol worrying 1 09/03/2025 1:10 PM Andrea Pritchard MA Worrying too much about diff erent [...] SHAQUILLE-7 Total Score 10 09/03/2025 1:10 PM Andrea Pritchard MA documented as of this encounter Plan of Treatment Upcoming Encounters Date Type Department Care Team (Late st Contact Info) Description 09/16/2025 1:30 PM EST Office Visit [facility] ADULT DENTAL [address] [place] [address] Maite Ross DDS [address] [place] [address] documented as of this encounter Visit Diagnoses Not on filedocumented in this encounter Additional Health Concerns Assessment Noted Time PHQ-9 Depression Total Score: 0 05/31/20 25 2:23 PM EDT documented as of this encounter Care Teams Mine Laborer Relationship Specialty Start Date End Date Lola Martin ANP [address] [place] [address] PCP - General Family Medicine 06/21/22 documented as of this encounter
--- OUTSIDE RECORDS SUMMARY | 2025-09-03 17:50 | XMS_ITS | Encounter Summary ---
Author Organization [employer] Address [address] [facility] [address] [place] [address] Care Team Providers Care Courier Name Role Phone Lola Martin Primary Care Provider [phone] Encounter Details Date Type Department Care Team ([facility] st Contact Info) Description 08/06/2025 Results Follow-Up [facility] MEDICINE [address] [place], [place] [phone] Conchis Oliver MD [address] [place] [address] Urinalysis, Complete, with Reflex to Culture Social [...] Description 09/16/2025 1:30 PM EST Office Visit [facility] ADULT DENTAL [address] [place] [address] Maite Ross DDS [address] [place] [address] documented as of this encounter Visit Diagnoses Not on filedocumented in this encounter Additional Health Concerns Assessment Noted Time PHQ-9 Depression Total Score: 0 05/31/20 2:23 PM EDT documented as of this encounter Care Teams Courier Relationship Specialty Start Date End Date Loal Martin ANP [address] [place] [address] PCP - General Family Medicine 06/21/22 documented as of this encounter
--- OUTSIDE RECORDS SUMMARY | 2025-09-03 17:50 | XMS_ITS | Encounter Summary ---
Author Organization [employer] Address [address] [facility] 7t [place] [address] Care Team Providers Care Coil Shaper Name Role Phone Lola Martin Primary Care Provider [phone] Reason for Visit * Reason Onset Date Comments chart prep 09/01/2025 Encounter Details Date Type Department Care Team ([facility] st Contact Info) Description 09/01/2025 Telephone [facility] MEDICINE [address] [place], [place] [phone] Lola Martin ANP [address] [place], [place] [phone] chart prep Social History Tobacco Use Types Packs/Day Years [...] encounter Miscellaneous Notes * Telephone Encounter - Andrea Pedroza MA - 09/01/2025 1:17 PM EST Chart Prep Labs: done Images: not done Referrals: complete Vaccines due: Covid, Flu, Hep B, and HPV Screenings: not applicable Overdue care gaps: SHAQUILLE-7 and Disability screen documented in this encounter Plan of Treatment Upcoming Encounters Date Type Department Care Team (Late st Contact Info) Description 09/16/2025 1:30 PM EST Office Visit [facility] ADULT DENTAL [address] [place] [address] Maite Ross DDS [address] [place] [address] documented as of this encounter Visit Diagnoses Not on filedocumented in this encounter Additional Health Concerns Assessment Noted Time PHQ-9 Depression Total Score: 0 05/31/20 2:23 PM EDT documented as of this encounter Care Teams Coil Shaper Relationship Specialty Start Date End Date Lola Martin ANP [address] [place] [address] PCP - General Family Medicine 06/21/22 documented as of this encounter
[2025-09-03 20:41] LABS: Bacterial Vaginosis PCR NEGATIVE (Negative); Candida Group PCR NOT DETECTED (Not Detect); Candida glab krusei PCR NOT DETECTED (Not Detect); Trichomonas vaginalis PCR NOT DETECTED (Not Detect)
== END 2025-09-03 17:48 | disposition home or self-care (01) ==
LOC: HO.HHCLNP 17:47
PROVIDERS: Visit Provider Nurse Practitioner Primary Care
DX: A59.01 Trichomonal vulvovaginitis (principal)
CPT/HCPCS: 81515